=== PATIENT | female | born 1940 | race Caucasian/White ===

== ENCOUNTER 2017-09-10 16:53 | Inpatient (IN) | payer MEDICARE, OTHER ==
[~2017-09-10] VITALS: Ht 157.5 cm; Wt 61.0 kg
[~2017-09-10 16:53] MED LIST: ADVA100A; ALBU6.7H INH; HYDR12.56 PO; NIFE10
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
[2017-09-10] MEDS ORDERED: MORPHINE SULFATE 4 MG/ML INJ IV PUSH ONE (17:30)
[2017-09-10] MEDS ORDERED: MORPHINE SULFATE 2 MG/ML INJ IV PUSH ONE ×2 (18:00)
--- NOTE | 2017-09-10 18:37 | RADRPT ---
EXAM DATE/TIME: 09/10/2017 17:48 [facility] COMPARISON: No previous studies available for comparison. INDICATIONS : Fall. Left hip pain. MEDICAL HISTORY : None. SURGICAL HISTORY : None. ENCOUNTER: Initial ACUITY: 1 day PAIN SCORE: 10/10 LOCATION: Left hip FINDINGS: Examination of the left hip was performed with AP Pelvis. There is an impacted fracture of the left f emoral neck. The fractures at the base of the femoral head. The visualized acetabulum is unremarkable . CONCLUSION: Impacted femoral neck fracture on the left. Tom Parry MD on September 10, 2017 at 18:33 Board Certified Radiologist. This report was verified electronically.
--- NOTE | 2017-09-10 18:48 | RADRPT ---
EXAM DATE/TIME: 09/10/2017 18:27 [facility] COMPARISON: No previous studies available for comparison. INDICATIONS : Trauma, trip and fall today. RADIATION DOSE: 56.35 CTDIvol (mGy) MEDICAL HISTORY : Dementia. SURGICAL HISTORY : None. ENCOUNTER: Initial ACUITY: 1 day PAIN SCALE: 3/10 LOCATION: Bilateral head TECHNIQUE: Multiple contiguous axial images were obtained of the head. Using automated exposure control and adj ustment of the mA and/or kV according to patient size, radiation dose was kept as low as reasonably a chievable to obtain optimal diagnostic quality images. DICOM format image data is available electro nically for review and comparison. FINDINGS: CEREBRUM: The ventricles are normal for age. No evidence of midline shift, mass lesion, hemorrhage or acute in farction. In the posterior left thalamus there is an area of increased density measuring 6 x 10 mm ac ross I suspect its calcium. No extra-axial fluid collections are seen. POSTERIOR FOSSA: The cerebellum and brainstem are intact. The 4th ventricle is midline. The cerebellopontine angle i s unremarkable. EXTRACRANIAL: The visualized portion of the orbits is intact. SKULL: The calvaria is intact. No evidence of skull fracture. CONCLUSION: Suspected calcification in the posterior left thalamus without surrounding edema. No concerning mass is identified. Tom Parry MD on September 10, 2017 at 18:44 Board Certified Radiologist. This report was verified electronically.
[2017-09-10 18:52] VITALS: PULSE 77; RESP 18; O2SAT 100
[2017-09-10] MEDS ORDERED: LACTULOSE SYRUP 20 GM/30 ML CUP PO PRN (19:00)
[2017-09-10] MEDS ORDERED: ACETAMINOPHEN 325 MG TAB PO PRN (19:00)
[2017-09-10] MEDS ORDERED: ONDANSETRON HCL 4 MG/2 ML VIAL IVP PRN (19:00)
[2017-09-10] MEDS ORDERED: NALOXONE HCL 0.4 MG/ML AMP IV PUSH PRN (19:00)
[2017-09-10] MEDS ORDERED: BISACODYL 10 MG SUPP RECTAL PRN (19:00)
[2017-09-10] MEDS ORDERED: SENNOSIDES 8.6 MG TAB PO PRN (19:00)
[2017-09-10] MEDS ORDERED: MAGNESIUM HYDROXIDE SUSP 30 ML CUP PO PRN (19:00)
[2017-09-10] MEDS ORDERED: SODIUM CHLORIDE 0.9% FLUSH 10 ML FLUSH IV FLUSH PRN (19:00)
[2017-09-10 19:04] VITALS: BP 172/72; PULSE 72; RESP 18; O2SAT 100
[2017-09-10 20:03] LABS: AUTOMATED NEUTROPHIL # 11.1 TH/MM3 (1.8-7.7); BASOPHIL # 0.1 TH/MM3 (0-0.2); BASOPHIL % 0.8 % (0.0-2.0); EOSINOPHIL # 0.1 TH/MM3 (0-0.4); EOSINOPHIL % 0.7 % (0.0-4.0); HEMATOCRIT 41.6 % (35.0-46.0); HEMOGLOBIN 14.5 GM/DL (11.6-15.3); LYMPH % 19.3 % (9.0-44.0); LYMPHOCYTE # 2.9 TH/MM3 (1.0-4.8); MEAN CELL VOLUME 100.9 FL (80.0-100.0); MEAN CORPUSCULAR HEMOGLOBIN 35.2 PG (27.0-34.0); MEAN CORPUSCULAR HGB CONC 34.8 % (32.0-36.0); MEAN PLATELET VOLUME 7.8 FL (7.0-11.0); MONO % 6.3 % (0.0-8.0); NEUT % 72.9 % (16.0-70.0); PLATELET COUNT 378 TH/MM3 (150-450); RED BLOOD COUNT 4.13 MIL/MM3 (4.00-5.30); RED CELL DISTRIBUTION WIDTH 13.1 % (11.6-17.2); WHITE BLOOD COUNT 15.2 TH/MM3 (4.0-11.0)
--- NOTE | 2017-09-10 20:18 | RADRPT ---
EXAM DATE/TIME: 09/10/2017 19:36 [facility] COMPARISON: No previous studies available for comparison. INDICATIONS : Evaluate for pneumonia, pneumothorax, or communicable disease. Pre op hip surgery. MEDICAL HISTORY : None. SURGICAL HISTORY : None. ENCOUNTER: Initial ACUITY: 1 day PAIN SCORE: 0/10 LOCATION: Bilateral chest FINDINGS: A single view of the chest demonstrates the lungs to be symmetrically aerated without evidence of mas s, infiltrate or effusion. The cardiomediastinal contours are unremarkable. Osseous structures are intact. CONCLUSION: Normal examination. Tom Parry MD on September 10, 2017 at 20:15 Board Certified Radiologist. This report was verified electronically.
[2017-09-10 20:19] LABS: BILIRUBIN, URINE NEG (NEG); BLOOD, URINE NEG (NEG); GLUCOSE,URINE NEG (NEG); KETONE, URINE TRACE mg/dL (NEG); NITRITE,URINE NEG (NEG); URINE COLOR YELLOW (YELLW/STRAW); URINE LEUKOCYTE ESTERASE NEG (NEG)
[2017-09-10 20:25] LABS: ALBUMIN 3.5 GM/DL (3.4-5.0); AST (GOT) 23 U/L (15-37); BICARBONATE 23.1 MEQ/L (21.0-32.0); BLOOD UREA NITROGEN 15 MG/DL (7-18); CALCIUM 8.7 MG/DL (8.5-10.1); CHLORIDE 104 MEQ/L (98-107); CREATININE 0.91 MG/DL (0.50-1.00); GLOMERULAR FILTRATION RATE 60 ML/MIN (>89); GLUCOSE,RANDOM 104 MG/DL (74-106); SODIUM (NA) 138 MEQ/L (136-145)
[2017-09-10 20:29] LABS: ALKALINE PHOSPHATASE 104 U/L (45-117); ALT (GPT) 27 U/L (10-53); TOTAL BILIRUBIN ADULT 0.5 MG/DL (0.2-1.0); TOTAL PROTEIN 7.2 GM/DL (6.4-8.2)
[2017-09-10 20:33] LABS: PROTHROMBIN TIME - PATIENT 10.1 SEC (9.8-11.6)
[2017-09-10] MEDS: ACETAMINOPHEN/HYDROcodone 325 MG/5 MG TAB PO PRN (20:36)
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
[2017-09-10 21:35] VITALS: BP 149/82; PULSE 70; RESP 16; TEMP 96.6; O2SAT 100
[2017-09-10] MEDS ORDERED: SODIUM CHLORID 0.9% 500 ML IV PRN (22:00)
[2017-09-10] MEDS ORDERED: LACTATED RINGER'S 1000 ML IV PRN (22:00)
[2017-09-10] MEDS ORDERED: METOPROLOL TARTRATE 25 MG TAB PO PRN (22:00)
[2017-09-10] MEDS ORDERED: CHLORHEXIDINE GLUCONATE 2 % 1 PACK (2 CLOTHS) TOPICAL PRN (22:00)
[2017-09-10] MEDS ORDERED: POVIDONE IODINE 5% (ANTISEPSIS KIT) 4 APPLICATIONS EACH NARE PRN (22:00)
[2017-09-10] MEDS ORDERED: MEMA1PAK PO (23:47)
[2017-09-10] MEDS ORDERED: PANT40TA3 PO (23:47)
[2017-09-10] MEDS ORDERED: DONE5TAB8 PO (23:47)
[2017-09-10] MEDS ORDERED: ATOR10TA15 PO (23:47)
[2017-09-10] MEDS ORDERED: BETH10TA2 PO (23:47)
[2017-09-10] MEDS ORDERED: ERYT250T13 PO (23:47)
[2017-09-11] MEDS: MEMANTINE HCL 10 MG TAB PO SCH ×3 (01:10→20:24)
[2017-09-11] MEDS ORDERED: diphenhydrAMINE HCL 25 MG CAP PO PRN (01:15)
[2017-09-11] MEDS ORDERED: MEMANTINE HCL 10 MG PO SCH (01:15)
[2017-09-11] MEDS: BETHANECHOL CHL 10 MG TAB PO SCH ×3 (01:15→15:25)
[2017-09-11] MEDS: MORPHINE SULFATE 2 MG/ML INJ IV PUSH PRN ×2 (03:34→06:32)
[2017-09-11] MEDS: SODIUM CHLORIDE 0.9% FLUSH 10 ML FLUSH IV FLUSH SCH ×3 (03:34→20:25)
[2017-09-11 06:00] VITALS: BP 185/76; PULSE 95; RESP 16; TEMP 98.3; O2SAT 96
[2017-09-11] MEDS ORDERED: TRANEXAMIC ACID INJ 915 MG in SODIUM CHLORIDE 0.9% INJ 100 ML IV SCH (07:00)
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
[2017-09-11] MEDS ORDERED: WALKER/ADULT/FO1 MIS (07:07)
[2017-09-11] MEDS ORDERED: XARE10TA PO (07:07)
[2017-09-11] MEDS ORDERED: CALCTAB19 PO (07:07)
[2017-09-11] MEDS ORDERED: NORC5TAB PO (07:07)
[2017-09-11] MEDS ORDERED: VITA500012 PO (07:07)
--- NOTE | 2017-09-11 07:50 | PD.CONS ---
History of Present Illness Service Neurology Consult Requested By medical Reason for Consult headache, abnormal ct brain Primary Care Physician Unknown History of Present Illness 77 y/o female admitted after suspected non-syncopal fall 2/2 imbalance and found to have left femoral neck fracture. underlying hx of dementia. had ct brain scan as part of w/u that showed a left thalamic lesion. they are from [place] and spend their brothers here. 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 hx of chronic headaches for about a year, takes nsaids for it. do not occur everyday. are frontal. no fever, no photo/phonophobia. no vision loss. short lasting. does not wake her up out of her sleep. no hx of tia/stroke/sz. pt states she has a mild frontal headache this am. edin po without difficulty. Review of Systems Except as stated in HPI/admit hp: all other systems reviewed are Neg Past Family Social History Past Medical History Dementia Asthma chronic headaches . Past Surgical History Denies any prior surgeries . Reported Medications Patient's to bring in a list tomorrow: Namenda Ibuprofen . Allergies: Coded Allergies: sulfamethoxazole (Unverified Allergy, Severe, RED FACE, 09/10/17) trimethoprim (Unverified Allergy, Severe, RED FACE, 09/10/17) . Family History Denies any family history of anesthesia-related problems . Social History Tobacco: Denies ever smoking Alcohol: Rare alcohol use on special occasions Illicit Drugs: Denies . Review of Systems All other ROS: ROS reviewed as documented in chart Past Family Social History Allergies: Coded Allergies: sulfamethoxazole (Unverified Allergy, Severe, RED FACE, 09/10/17) trimethoprim (Unverified Allergy, Severe, RED FACE, 09/10/17) Active Ordered Medications Current Medications Medications (Trade) Dose Ordered Sig/Joy Route Start Time Stop Time Status Last Admin (NS Flush) 2 ml UNSCH PRN IV FLUSH 09/10/17 19:00 (NS Flush) 2 ml BID IV FLUSH 09/10/17 21:00 09/11/17 03:34 (Tylenol) 650 mg Q4H PRN PO 09/10/17 19:00 (Zofran Inj) 4 mg Q6H PRN IVP 09/10/17 19:00 (Narcan Inj) 0.4 mg UNSCH PRN IV PUSH 09/10/17 19:00 (Milk Of Magnesia Liq) 30 ml Q12H PRN PO 09/10/17 19:00 (Senokot) 17.2 mg Q12H PRN PO 09/10/17 19:00 (Dulcolax Supp) 10 mg DAILY PRN RECTAL 09/10/17 19:00 (Lactulose Liq) 30 ml DAILY PRN PO 09/10/17 19:00 ([place] 5-325 Mg) 1 tab Q6H PRN PO 09/10/17 19:00 09/10/17 20:36 Lactated Ringer's 1,000 ml @ 30 mls/hr Q24H PRN IV 09/10/17 22:00 09/13/17 21:59 Sodium Chloride 500 ml @ 30 mls/hr [id number] PRN IV 09/10/17 22:00 09/13/17 21:59 (Lopressor) 25 mg INDUSTRIAL ENGINEERING MANAGER PRN PO 09/10/17 22:00 09/13/17 21:59 (Betadine 5% Antisepsis Kit) 1 applic INDUSTRIAL ENGINEERING MANAGER PRN EACH NARE 09/10/17 22:00 09/13/17 21:59 (Chlorhexidine 2% Cloth) 3 pack INDUSTRIAL ENGINEERING MANAGER PRN TOPICAL 09/10/17 22:00 09/13/17 21:59 (Morphine Inj) 2 mg Q3H PRN IV PUSH 09/10/17 23:30 09/11/17 06:32 (Benadryl) 25 mg HS PRN PO 09/11/17 01:15 (Lipitor) 10 mg DAILY PO 09/11/17 09:00 (Urecholine) 10 mg Q8HR PO 09/11/17 01:15 (Aricept) 5 mg DAILY PO 09/11/17 09:00 (Protonix) 40 mg BID PO 09/11/17 09:00 (Erythromycin Ec) 250 mg DAILY PO 09/11/17 09:00 (Namenda) 10 mg BID PO 09/11/17 01:10 Tranexamic Acid 915 mg/Sodium Chloride 109.15 ml @ 200 mls/ hr UNSCH X1 IV 09/11/17 07:00 09/11/17 13:00 Exam I&O / VS Vital Signs Date Time Temp Pulse Resp B/P (MAP) Pulse Ox O2 Delivery O2 Flow Rate FiO2 09/11/17 06:00 98.3 95 16 185/76 (112) 96 09/11/17 05:53 21 09/10/17 21:35 96.6 70 16 149/82 (104) 100 09/10/17 20:35 09/10/17 19:04 72 18 172/72 (105) 100 Room Air 09/10/17 18:52 77 18 100 Room Air 09/10/17 17:45 60 18 100 General: No acute distress Eye: EOMI Respiratory: Non-labored respirations Cardiology: Normal rate Neurologic: Alert, CN II-XII intact Psychiatric: Cooperative, Appropriate mood & affect Exam Comments ox 1, pleasant, calm, in nad, eomi, ou 3-2mm, face sym, no hindu tenderness, neck supple, villanueva to gravity but reduced in left le 2/2 fx, msr sym Review/Management Diagnosis/Plan: (1) Head ache ICD Codes: R51 - Headache Status: Chronic Plan: chronic headache. may be tension-type left dorsal thalamic lesion- possibly calcification recs mri/mra brain if possible before left hip surgery, otherwise when feasible trial of depakote er d/w pt/spouse (2) History of dementia ICD Codes: Z86.59 - Personal history of other mental and behavioral disorders Status: Chronic Plan: x 1 year per spouse (3) Impacted fracture of left hip ICD Codes: S72.092A - Other fracture of head and neck of left femur, initial encounter for closed fracture Status: Acute Problem Qualifiers (1) Head ache: (2) Impacted fracture of left hip: Qualified Codes: S72.092A - Other fracture of head and neck of left femur, initial encounter for closed fracture Darrius Cooper MD Sep 11, 2017 07:50
[2017-09-11 08:00] VITALS: BP 153/82; PULSE 95; RESP 18; TEMP 99.1; O2SAT 96
[2017-09-11] MEDS: ATORVASTATIN 10 MG TAB PO SCH (08:34)
[2017-09-11] MEDS: ACETAMINOPHEN/HYDROcodone 325 MG/5 MG TAB PO PRN ×2 (08:35→15:26)
[2017-09-11] MEDS: DONEPEZIL HCL 5 MG TAB PO SCH (08:35)
[2017-09-11] MEDS: PANTOPRAZOLE SOD 40 MG DELAYED RELEASE TAB PO SCH ×2 (08:35→20:24)
[2017-09-11] MEDS: ERYTHROMYCIN EC 250 MG TABEC PO SCH (09:00)
[2017-09-11] MEDS: DIVALPROEX SODIUM E.R. 250 MG TAB PO SCH (09:00)
[2017-09-11 10:24] VITALS: O2SAT 96
[2017-09-11] MEDS ORDERED: ceFAZolin INJ 1,000 MG VIAL ONE (10:52)
[2017-09-11] MEDS ORDERED: VANCOMYCIN HCL 1000 MG VIAL ONE (10:52)
[2017-09-11] MEDS ORDERED: SODIUM CHLOR 0.9% 250 ML INJ 250 ML ONE (10:53)
[2017-09-11] MEDS ORDERED: GENTAMICIN SULFATE 80 MG/2 ML VIAL ONE (10:53)
--- NOTE | 2017-09-11 11:45 | PD.OP ---
cc: Rico Angeles MD Operative Report Date of Surgery: Sep 11, 2017 Preoperative Diagnosis: Displaced left femoral neck fracture Postoperative Diagnosis: Procedure: Left hip hemiarthroplasty Anesthesia: Spinal Surgeon: Rico Angeles Physical Therapy Technician(s): ERNA Ling PA-C The surgical procedure was assisted by my physician physician assistant surgery. My P.A. presence was necessary throughout this case for the manipulation and positioning of the surgical extremity. My P.A. was assisting me throughout the duration of this procedure. The skill set of a physician physician assistant surgery was medically necessary to complete this procedure. During the surgical case the surgical garment assembly supervisor was working at the back table and the physician physician assistant surgery was directly assisting me. Operation and Findings: PLAN OF ACTIVITY Weight bear as tolerated. IMPLANTS USED DePuy Corail size [10] stem with size [42] bipolar head and [+1] neck. DRAIN: 7 mm Sameer-Rojas drain DETAILS OF PROCEDURE Regi was brought into the operating room and placed on the OR table. The patient was given spinal anesthesia. The patient received IV antibiotics. The patient was then placed in lateral decubitus position. The left hip and leg were prepped with alcohol, followed by Hibiclens and draped in a usual sterile fashion. Clean air was used for this procedure. Time out procedure was performed. The procedure began with a 5 inch incision over the posterolateral hip. The subcutaneous tissue was dissected with the Bovie. The iliotibial band were split in line with fibers. The Charnley retractor was placed. The piriformis and external rotators were released from the femur and tagged with a #1 Vicryl suture. The capsule is now incised and tagged with #1 Vicryl. The femoral neck fracture was now visualized. A corkscrew was now used to remove the femoral head. The femoral head was sized and measured. Soft tissue was now protected. The hip skid was placed underneath the femoral neck. An oscillating saw was used to make a femoral neck cut. At this point attention was turned to preparation of the proximal femur. A box osteotome was used to remove the lateral cortex of the femoral neck. The T- handle reamer was used to open the femoral canal. Next, the canal was broached. A lateralizing reamer was used to help lateralize the prosthesis. At this point a trial head and neck were placed. The hip was reduced. The patient was found to have excellent stability with good range of motion. Trial components were removed. Soft tissue and bone were thoroughly irrigated. A Corail stem was now opened. The stem was now impacted into the proximal femur. Care was taken to keep appropriate anteversion. The head and neck were now impacted onto the stem. The hip was again reduced. The hip was found to have good range of motion and good stability. Leg lengths were clinically equal. The wound was thoroughly irrigated. The capsule, piriformis and iliotibial band were closed with #1 Vicryl. Subcutaneous tissue was closed with 3-0 Vicryl. The skin was closed with armando. A sterile dressing was applied with Primapore. The patient was placed into a knee immobilizer. The patient was awakened and transferred to the recovery room in stable condition. Needle and sponge counts were correct. Rico Angeles MD Sep 11, 2017 11:45
--- NOTE | 2017-09-11 11:58 | MB ---
cc: MAINE LEARY DATE OF CONSULTATION 09/11/2017 REASON FOR CONSULTATION Left femoral neck fracture. CONSULTING PHYSICIAN Dr. Maldonado. HISTORY OF PRESENT ILLNESS Ms. Darden is a 77-year-old female. She has a history of dementia. She is unable to give any significant history herself. Her is at bedside. The patient and her were walking out of [employer]. The patient turned around to look behind her when she lost her balance. She fell. She landed on her left side. She had immediate left hip pain. She was unable to stand or ambulate. She presented to the emergency room where x-rays revealed a left femoral neck fracture. She is currently awake but confused. Pain is worse with movement. She denies dizziness, syncope or loss of consciousness. PAST MEDICAL HISTORY ILLNESSES 1. Dementia. 2. Asthma. 3. Gastroparesis. SURGERIES None. MEDICATIONS 1. Namenda. 2. Ibuprofen. ALLERGIES 1. SULFA. 2. TRIMETHOPRIM. FAMILY HISTORY Noncontributory. SOCIAL HISTORY The patient lives with her . She does not smoke, drink, or use drugs. REVIEW OF SYSTEMS The review of systems is limited secondary to dementia. She denies headache, visual changes, neck pain, chest pain, shortness of breath, abdominal pain, nausea, vomiting or recent weight loss, fevers or chills, numbness or tingling of extremities. She complains of left hip pain. Pain is worse with movement. PHYSICAL EXAMINATION GENERAL: The patient is a 77-year-old female in no acute distress. She is awake but has confusion. She appears well-developed, well-nourished. VITAL SIGNS: Temperature 99.1, pulse 95, respirations 18, blood pressure 153/82. O2 sat is 96% on room air. HEAD: The patient is normocephalic. Pupils are equal. NECK: Soft, nontender. Trachea is midline. ABDOMEN: Soft, nontender, nondistended. EXTREMITIES: Examination of bilateral upper extremities reveals no obvious pain or deformity with shoulder, elbow or wrist motion. She has good capillary refill in her fingers. Sensation is intact to both hands. Skin is intact. Examination of right leg reveals no obvious pain or deformity with hip, knee or ankle motion. Skin is intact. Dorsalis pedis pulse is palpable. Sensation is intact. Examination of left leg reveals pain with any hip motion. She has minimal tenderness around her knee, tibia or ankle. Skin is intact. Dorsalis pedis pulse is palpable. Sensation is intact in the left lower extremity. X-RAYS X-rays of left hip were reviewed. X-rays reveal a displaced left femoral neck fracture. IMPRESSION 1. Displaced left femoral neck fracture. 2. Dementia. PLAN The treatment options were discussed with the patient and her . At this point I would recommend a left hip hemiarthroplasty. The risks of surgery include bleeding, infection, injuries to arteries, nerves and blood vessels, nonunion, hip dislocation, leg length discrepancies, as well as medical complications including blood clot, stroke, heart attack and . All questions were answered. I will plan on surgery today. A mid-level provider in my office, nurse practitioner or PA, may see this patient on a follow-up basis and continue to implement the objective of this plan including: Starting or adjusting medications, injections of muscle, tendon, bursa or joints, cast application, orthotic or brace application, physical therapy, further radiographic studies including x-ray, MRI, CT, ultrasounds or bone scan, vascular studies, neurologic studies, or other specialist consultations, and proceeding with surgical management as appropriate. MD CHRISTEL Snider/WILMAR /11:05 AM /11:31 AM
[2017-09-11] MEDS ORDERED: ePHEDrine/NS 25 MG/5 ML SYRINGE IV ONE (12:00)
[2017-09-11] MEDS ORDERED: PROPOFOL 200 MG/20 ML AMP IV ONE (12:00)
[2017-09-11] MEDS ORDERED: PHENYLEPHRINE HCL 10 MG/ML VIAL IV ONE (12:00)
[2017-09-11] MEDS ORDERED: GLYCOPYRROLATE 1 MG/5 ML SYRINGE IV PUSH ONE (12:00)
[2017-09-11] MEDS ORDERED: PHENYLEPH/NS 1000 MCG/10 ML SYR IV ONE (12:00)
[2017-09-11] MEDS ORDERED: *ONDANSETRON 4 MG VIAL PERIprocedural Use ONLY ONE (13:02)
--- NOTE | 2017-09-11 13:02 | HHI.PR ---
Subjective Remarks no nausea or vomiting mild headache Objective Vitals Vital Signs Date Time Temp Pulse Resp B/P (MAP) Pulse Ox O2 Delivery O2 Flow Rate FiO2 09/11/17 10:24 96 09/11/17 08:00 99.1 95 18 153/82 (105) 96 09/11/17 06:00 98.3 95 16 185/76 (112) 96 09/11/17 05:53 21 09/10/17 21:35 96.6 70 16 149/82 (104) 100 09/10/17 20:35 09/10/17 19:04 72 18 172/72 (105) 100 Room Air 09/10/17 18:52 77 18 100 Room Air 09/10/17 17:45 60 18 100 I/O 09/10/17 09/10/17 09/10/17 09/11/17 09/11/17 09/11/17 06:59 14:59 22:59 06:59 14:59 22:59 Output Total 300 ml 450 ml Balance -300 ml -450 ml Output Urine Total 300 ml 450 ml Result Diagram: 09/10/17192409/10/171924 Imaging Last Impressions Hip and Pelvis X-Ray 09/11/17 1139 Signed Impressions: Service Date/Time: Monday, September 11, 2017 13:44 - CONCLUSION: Expected post surgical changes status post left hip arthroplasty. Chinmay Mays MD Head Magnetic Resonance Angiography 09/11/17 0000 Signed Impressions: Service Date/Time: Monday, September 11, 2017 17:00 - CONCLUSION: 1. Small caliber likely hypoplastic right A1 segment. 2. Otherwise, unremarkable MRA examination of the brain. Specifically, no evidence for significant AV malformation as questioned. Lencho Zhao MD Brain MRI 09/11/17 0000 Signed Impressions: Service Date/Time: Monday, September 11, 2017 17:00 - CONCLUSION: 1. The apparent calcification in the left thalamus is not well-visualized on MRI. There is no focal mass or abnormal enhancement in this region. 2. Atrophy and chronic small vessels in the change. Chinmay Mays MD Chest X-Ray 09/10/17 1859 Signed Impressions: Service Date/Time: Sunday, September 10, 2017 19:36 - CONCLUSION: Normal examination. Tom Parry MD Head CT 09/10/17 1734 Signed Impressions: Service Date/Time: Sunday, September 10, 2017 18:27 - CONCLUSION: Suspected calcification in the posterior left thalamus without surrounding edema. No concerning mass is identified. Tom Parry MD Objective Remarks awake and alert no nuchal rigidity lungs clear regular rhtyhm abdomen sot, nontender extremities no edema Procedures 09/11- left hip hemiarthroplasty A/P Problem List: (1) Impacted fracture of left hip ICD Code: S72.092A - Other fracture of head and neck of left femur, initial encounter for closed fracture Status: Acute (2) History of dementia ICD Code: Z86.59 - Personal history of other mental and behavioral disorders Status: Chronic Assessment and Plan 77 y/o female with a history of dementia, asthma without exacerbation since childhood, frequent headaches, and gastroparesis who presents to the ER following a fall in the [employer] parking lot earlier today resulting in severe left hip pain. Imaging in the emergency room shows impacted fracture of left femoral neck. S/P left hip hemiarthroplasty for Impacted fracture of left femoral neck 09/11 - orthopedics ff - [place] 5/325 mg p.o. q6h PRN pain Underlying Dementia - continue meds chronic Frequent headaches/suspected left posterior thalamus calcification seen on head CT in ED - likely a benign finding -appreciate Dr. Cruz seeing patient - Depakote DVT prophylaxis - Lovenox CM - DC planning- SNF likely Problem Qualifiers (1) Impacted fracture of left hip: Qualified Codes: S72.092A - Other fracture of head and neck of left femur, initial encounter for closed fracture Vanessa Ingram MD Sep 11, 2017 13:02
[2017-09-11] MEDS ORDERED: DO NOT ADM ANY ANTICOAGULANT DRUGS PRN (13:11)
[2017-09-11] MEDS ORDERED: MORPHINE SULFATE 2 MG/ML INJ IV PUSH PRN (13:45)
[2017-09-11] MEDS ORDERED: Post-op Orders (for Pharmacy) XX ONE (14:00)
--- NOTE | 2017-09-11 14:51 | RADRPT ---
EXAM DATE/TIME: 09/11/2017 13:44 [facility] COMPARISON: HIP LEFT (AP&LAT 2/3VWS) W AP PELVIS, September 10, 2017, 17:48. INDICATIONS : Post left total hip replacement. MEDICAL HISTORY : Dementia. Asthma. SURGICAL HISTORY : Total left hip replacement. ENCOUNTER: Subsequent ACUITY: 2 days PAIN SCORE: Non-responsive. LOCATION: Left hip FINDINGS: Multiple views of the left hip were obtained as well as an AP view the pelvis. The patient is status post left hip arthroplasty. Femoral and tibial components are intact and in normal alignment. There i s an adjacent surgical drain in place. There is mild osteopenia. There is mild soft tissue swelling w ith overlying skin armando. CONCLUSION: Expected post surgical changes status post left hip arthroplasty. Chinmay Mays MD on September 11, 2017 at 14:47 Board Certified Radiologist. This report was verified electronically.
[2017-09-11] MEDS ORDERED: ERGOCALCIFEROL (VIT D2) 50,000 UNIT CAP PO ONE (15:00)
[2017-09-11 15:30] VITALS: BP 106/58; PULSE 64; RESP 17; TEMP 95.9; O2SAT 99
--- NOTE | 2017-09-11 15:48 | EKG ---
Date Performed: 09/10/2017 Time Performed: 19:31:37 PTAGE: 77 years EKG: SINUS BRADYCARDIA POSSIBLE INFERIOR MYOCARDIAL INFARCTION BORDERLINE ECG PREVIOUS TRACING : 10/14/2008 19.59 Compared to prior tracing no significant change DOCTOR: Cristobal Ivey Interpretating Date/Time 09/11/2017 15:46:54
--- NOTE | 2017-09-11 17:52 | RADRPT ---
EXAM DATE/TIME: 09/11/2017 17:00 [facility] COMPARISON: CT BRAIN W/O CONTRAST, September 10, 2017, 18:27. INDICATIONS : Mass. patient is one day status post trauma with suspected calcifications versus mass in the left mulu lamus. CONTRAST: 12 cc Omniscan (gadodiamide) IV MEDICAL HISTORY : None. SURGICAL HISTORY : Left hip. ENCOUNTER: Subsequent ACUITY: 1 day PAIN SCORE: 3/10 LOCATION: cranial TECHNIQUE: Multiplanar, multisequence MRI of the brain was performed both prior to and following the administrat ion of paramagnetic contrast. FINDINGS: CEREBRUM: The ventricles are normal for age. No evidence of midline shift, mass lesion, hemorrhage or acute in farction. The area of apparent calcification seen on CT in the posterior left thalamus is not well vi sualized on the MRI. On the SWI mid images there is low signal in this region consistent with a benig n process such as a calcification. No extraaxial fluid collections are seen. The pituitary gland and suprasellar cistern are normal in configuration. WHITE MATTER: On the flair weighted images there is increased signal noted on the periventricular white matter zahraa acteristic of chronic small vessel ischemic change. POSTERIOR FOSSA: The cerebellum and brainstem are intact. The 4th ventricle is midline. The cerebellopontine angle is unremarkable. The cerebellar tonsils are normal in position. DIFFUSION IMAGING: No focal areas of restricted diffusion are seen. No evidence of acute infarction. EXTRACRANIAL: The visualized portions of the orbits and paranasal sinuses are unremarkable. POST-CONTRAST: No abnormal areas of parenchymal or dural enhancement. No evidence of blood-brain barrier breakdown. CONCLUSION: 1. The apparent calcification in the left thalamus is not well-visualized on MRI. There is no focal m ass or abnormal enhancement in this region. 2. Atrophy and chronic small vessels in the change. Chinmay Mays MD on September 11, 2017 at 17:43 Board Certified Radiologist. This report was verified electronically.
[2017-09-11] MEDS: ceFAZolin 2 GM PREMIX 50 ML IV SCH (18:00)
[2017-09-11] MEDS ORDERED: GADODIAMIDE PF 287 MG/ML 5 ML VIAL (for RAD MRI) IV PUSH ONE (18:03)
--- NOTE | 2017-09-11 18:08 | RADRPT ---
EXAM DATE/TIME: 09/11/2017 17:00 [facility] COMPARISON: MRI BRAIN W & W/O CONTRAST, September 11, 2017, 17:00. INDICATIONS : AVM. MEDICAL HISTORY : None. SURGICAL HISTORY : Left hip. ENCOUNTER: Subsequent ACUITY: 1 day PAIN SCORE: 3/10 LOCATION: cranial Please note a normal MRA of the brain does not entirely exclude the possibility of a small aneurysm, nor the possibility of distal intracranial vessel disease. TECHNIQUE: 3D time of flight MRA was performed. Source images, multiplanar STS MIP, and 3D volume MIP reconstru ctions were reviewed. FINDINGS: Anterior circulation: Distal intracranial internal carotid arteries are patent with flow extending to the middle and anteri or cerebral arteries. Small caliber likely hypoplastic right A1 segment. There is no evidence for ane urysm, vessel truncation or stenosis, and no evidence for vascular malformation. Posterior circulation: Symmetric distal vertebral arteries with flow extending to basilar artery. There is no evidence for aneurysm, vessel truncation or stenosis, and no evidence for vascular malformation. CONCLUSION: 1. Small caliber likely hypoplastic right A1 segment. 2. Otherwise, unremarkable MRA examination of the brain. Specifically, no evidence for significant AV malformation as questioned. Lencho Zhao MD on September 11, 2017 at 18:04 Board Certified Radiologist. This report was verified electronically.
[2017-09-11 20:00] VITALS: BP 156/77; PULSE 78; RESP 16; TEMP 98.3; O2SAT 98
[2017-09-11] MEDS ORDERED: LACTATED RINGER'S 1000 ML IV PRN (22:45)
[2017-09-11] MEDS ORDERED: POVIDONE IODINE 5% (ANTISEPSIS KIT) 4 APPLICATIONS EACH NARE PRN (22:45)
[2017-09-11] MEDS ORDERED: SODIUM CHLORID 0.9% 500 ML IV PRN (22:45)
[2017-09-11] MEDS ORDERED: CHLORHEXIDINE GLUCONATE 2 % 1 PACK (2 CLOTHS) TOPICAL PRN (22:45)
[2017-09-11] MEDS ORDERED: INSULIN HUMAN REGULAR 1,000 UNITS/10 ML VIAL SQ PRN (22:45)
[2017-09-11] MEDS ORDERED: METOPROLOL TARTRATE 25 MG TAB PO PRN (22:45)
[2017-09-11 22:49] LABS: C-REACTIVE PROTEIN 10.3 MG/DL (0.00-0.30)
[2017-09-12] VITALS (8 sets, daily range): BP systolic 137–185; BP diastolic 78–89; PULSE 83–97; RESP 16–20; TEMP 96.6–99.4; O2SAT 93–99
[2017-09-12] MEDS: ceFAZolin 2 GM PREMIX 50 ML IV SCH ×2 (00:40→06:14)
[2017-09-12] MEDS: MORPHINE SULFATE 2 MG/ML INJ IV PUSH PRN ×2 (00:47→07:55)
[2017-09-12] MEDS: BETHANECHOL CHL 10 MG TAB PO SCH ×4 (00:47→12:34)
--- NOTE | 2017-09-12 06:45 | PD.ORT.PN ---
Subjective Subjective Remarks POD 1 s/p left hip hemiarthroplasty patient reports mild pain. no other complaints. Objective Vitals Vital Signs Date Time Temp Pulse Resp B/P (MAP) Pulse Ox O2 Delivery O2 Flow Rate FiO2 09/12/17 06:00 99.0 97 16 180/89 (119) 98 09/12/17 00:00 98.7 83 16 166/78 (107) 95 09/11/17 20:00 98.3 78 16 156/77 (103) 98 09/11/17 15:30 95.9 64 17 106/58 (74) 99 09/11/17 14:45 97.6 68 16 110/57 (74) 96 Room Air 09/11/17 14:30 67 16 108/59 (75) 96 Room Air 09/11/17 14:15 70 16 109/57 (74) 96 Room Air 09/11/17 14:00 74 16 102/55 (71) 95 Room Air 09/11/17 13:45 75 16 99/52 (68) 95 Room Air 09/11/17 13:30 72 16 97/53 (68) 95 Room Air 09/11/17 13:15 70 16 94/50 (65) 94 Room Air 09/11/17 13:00 97.7 62 18 88/56 (67) 98 Nasal Cannula 2 09/11/17 10:24 96 09/11/17 08:00 99.1 95 18 153/82 (105) 96 I/O 09/11/17 09/11/17 09/11/17 09/12/17 09/12/17 09/12/17 07:00 15:00 23:00 07:00 15:00 23:00 Intake Total 1000 ml 600 ml Output Total 300 ml 830 ml 700 ml Balance -300 ml 170 ml -100 ml Intake Oral 600 ml Other 1000 ml Output Urine Total 300 ml 700 ml 700 ml Drainage Total 30 ml Estimated Blood Loss 100 ml Result Diagram: 09/10/17192409/10/171924 Imaging Last 24 hours Impressions Chest X-Ray 09/10/179 Signed Impressions: Service Date/Time: Sunday, September 10, 2017 19:36 - CONCLUSION: Normal examination. Tom Parry MD Head CT 09/10/17 [id number] Signed Impressions: Service Date/Time: Sunday, September 10, 2017 18:27 - CONCLUSION: Suspected calcification in the posterior left thalamus without surrounding edema. No concerning mass is identified. Tom Parry MD Hip and Pelvis X-Ray 09/10/17 6099 Signed Impressions: Service Date/Time: Sunday, September 10, 2017 17:48 - CONCLUSION: Impacted femoral neck fracture on the left. Tom Parry MD Objective Remarks LLE: dressings clean and dry. intact. NVI. +CKS. +drain Assessment & Plan Assessment and Plan 1) Left femoral neck fracture s/p hemiarthroplasty - POD 1 -WBAT -posterior hip precautions -knee brace while in bed -DC drain POD 2 with dressing change -CM for SNF placement -DVT prophylaxis -f/u with Ariane or PA 2 weeks Rodney Manuel/Coal Grader MARIE Sep 12, 2017 06:45
[2017-09-12 07:16] LABS: HEMATOCRIT 38.9 % (35.0-46.0); HEMOGLOBIN 13.3 GM/DL (11.6-15.3)
[2017-09-12] MEDS: ATORVASTATIN 10 MG TAB PO SCH (07:55)
[2017-09-12] MEDS: ACETAMINOPHEN/HYDROcodone 325 MG/5 MG TAB PO PRN ×2 (07:55→21:33)
[2017-09-12] MEDS: MEMANTINE HCL 10 MG TAB PO SCH ×2 (07:55→21:28)
[2017-09-12] MEDS: PANTOPRAZOLE SOD 40 MG DELAYED RELEASE TAB PO SCH ×2 (07:55→21:28)
[2017-09-12] MEDS: DONEPEZIL HCL 5 MG TAB PO SCH (07:55)
[2017-09-12] MEDS: DIVALPROEX SODIUM E.R. 250 MG TAB PO SCH (07:55)
[2017-09-12] MEDS: ERYTHROMYCIN EC 250 MG TABEC PO SCH (07:56)
[2017-09-12] MEDS: CHOLECALCIFEROL (VIT D3) 5000 UNIT CAP PO SCH (07:56)
--- NOTE | 2017-09-12 07:58 | HHI.PR ---
Review/Management Diagnosis/Plan: (1) Head ache ICD Codes: R51 - Headache Status: Chronic Plan: chronic headache. may be tension-type left dorsal thalamic lesion- possibly calcification mri negative recs mri/mra brain- no lesion, no stroke or mass esr nml continue depakote; can titrate up in a few weeks d/w pt/spouse results of imaging (2) History of dementia ICD Codes: Z86.59 - Personal history of other mental and behavioral disorders Status: Chronic Plan: x 1 year per spouse (3) Impacted fracture of left hip ICD Codes: S72.092A - Other fracture of head and neck of left femur, initial encounter for closed fracture Status: Acute Subjective Subjective Comments No acute events reported No headache No chest pain No dyspnea Active Medications Current Medications Medications (Trade) Dose Ordered Sig/Joy Route Start Time Stop Time Status Last Admin (NS Flush) 2 ml UNSCH PRN IV FLUSH 09/10/17 19:00 (NS Flush) 2 ml BID IV FLUSH 09/10/17 21:00 09/11/17 20:25 (Tylenol) 650 mg Q4H PRN PO 09/10/17 19:00 (Zofran Inj) 4 mg Q6H PRN IVP 09/10/17 19:00 (Narcan Inj) 0.4 mg UNSCH PRN IV PUSH 09/10/17 19:00 (Milk Of Magnesia Liq) 30 ml Q12H PRN PO 09/10/17 19:00 (Senokot) 17.2 mg Q12H PRN PO 09/10/17 19:00 (Dulcolax Supp) 10 mg DAILY PRN RECTAL 09/10/17 19:00 (Lactulose Liq) 30 ml DAILY PRN PO 09/10/17 19:00 ([place] 5-325 Mg) 1 tab Q6H PRN PO 09/10/17 19:00 09/11/17 15:26 Lactated Ringer's 1,000 ml @ 30 mls/hr Q24H PRN IV 09/10/17 22:00 09/13/17 21:59 Sodium Chloride 500 ml @ 30 mls/hr [id number] PRN IV 09/10/17 22:00 09/13/17 21:59 (Lopressor) 25 mg HOOP COILER PRN PO 09/10/17 22:00 09/13/17 21:59 09/11/17 10:04 (Betadine 5% Antisepsis Kit) 1 applic HOOP COILER PRN EACH NARE 09/10/17 22:00 09/13/17 21:59 (Chlorhexidine 2% Cloth) 3 pack HOOP COILER PRN TOPICAL 09/10/17 22:00 09/13/17 21:59 (Morphine Inj) 2 mg Q3H PRN IV PUSH 09/10/17 23:30 09/12/17 00:47 (Benadryl) 25 mg HS PRN PO 09/11/17 01:15 (Lipitor) 10 mg DAILY PO 09/11/17 09:00 09/11/17 08:34 (Urecholine) 10 mg Q8HR PO 09/11/17 01:15 09/12/17 06:13 (Aricept) 5 mg DAILY PO 09/11/17 09:00 09/11/17 08:35 (Protonix) 40 mg BID PO 09/11/17 09:00 09/11/17 20:24 (Erythromycin Ec) 250 mg DAILY PO 09/11/17 09:00 09/11/17 09:00 (Namenda) 10 mg BID PO 09/11/17 01:10 09/11/17 20:24 (Depakote Er) 250 mg DAILY PO 09/11/17 09:00 09/11/17 09:00 (Lovenox Inj) 30 mg Q24H SQ 09/12/17 12:00 (Morphine Inj) 2 mg Q3H PRN IV PUSH 09/11/17 13:45 (Vitamin D3) 5,000 units DAILY PO 09/12/17 09:00 Miscellaneous Information ALL NURSING DEPARTME... UNSCH PRN .XX 09/11/17 13:11 09/12/17 13:10 Lactated Ringer's 1,000 ml @ 30 mls/hr Q24H PRN IV 09/11/17 22:45 09/14/17 22:44 Sodium Chloride 500 ml @ 30 mls/hr [id number] PRN IV 09/11/17 22:45 09/14/17 22:44 (Lopressor) 25 mg HOOP COILER PRN PO 09/11/17 22:45 09/14/17 22:44 (Betadine 5% Antisepsis Kit) 1 applic HOOP COILER PRN EACH NARE 09/11/17 22:45 09/14/17 22:44 (Chlorhexidine 2% Cloth) 3 pack HOOP COILER PRN TOPICAL 09/11/17 22:45 09/14/17 22:44 (NovoLIN R INJ) See Protocol Table ... HOOP COILER PRN SQ 09/11/17 22:45 09/14/17 22:44 Allergies Allergies Coded Allergies sulfamethoxazole (Unverified Allergy, Severe, RED FACE, 09/10/17) trimethoprim (Unverified Allergy, Severe, RED FACE, 09/10/17) Review of Systems All other ROS: ROS reviewed as documented in chart Exam I&O / VS Vital Signs Date Time Temp Pulse Resp B/P (MAP) Pulse Ox O2 Delivery O2 Flow Rate FiO2 09/12/17 07:40 99.4 94 20 185/85 (118) 93 09/12/17 06:00 99.0 97 16 180/89 (119) 98 09/12/17 00:00 98.7 83 16 166/78 (107) 95 09/11/17 20:00 98.3 78 16 156/77 (103) 98 09/11/17 15:30 95.9 64 17 106/58 (74) 99 09/11/17 14:45 97.6 68 16 110/57 (74) 96 Room Air 09/11/17 14:30 67 16 108/59 (75) 96 Room Air 09/11/17 14:15 70 16 109/57 (74) 96 Room Air 09/11/17 14:00 74 16 102/55 (71) 95 Room Air 09/11/17 13:45 75 16 99/52 (68) 95 Room Air 09/11/17 13:30 72 16 97/53 (68) 95 Room Air 09/11/17 13:15 70 16 94/50 (65) 94 Room Air 09/11/17 13:00 97.7 62 18 88/56 (67) 98 Nasal Cannula 2 09/11/17 10:24 96 09/11/17 08:00 99.1 95 18 153/82 (105) 96 General: No acute distress Eye: EOMI Respiratory: Non-labored respirations Cardiology: Normal rate Neurologic: Alert, CN II-XII intact Psychiatric: Cooperative, Appropriate mood & affect Exam Comments ox 1, pleasant, calm, in nad, eomi, ou 3-2mm, face sym, no church tenderness, neck supple, villanueva to gravity but reduced in left le 2/2 fx/cast, msr sym Objective Micro and Labs Laboratory Tests Test 09/11/17 21:50 09/12/17 06:50 Erythrocyte Sedimentation Rate 14 C-Reactive Protein 10.30 Vitamin B12 Level 220 25-Hydroxy Vitamin D Total 12.2 Thyroid Stimulating Hormone 3rd Gen 6.600 Hemoglobin 13.3 Hematocrit 38.9 Problem Qualifiers (1) Head ache: (2) Impacted fracture of left hip: Qualified Codes: S72.092A - Other fracture of head and neck of left femur, initial encounter for closed fracture Darrius Cooper MD Sep 12, 2017 07:58
[2017-09-12] MEDS: SODIUM CHLORIDE 0.9% FLUSH 10 ML FLUSH IV FLUSH SCH ×2 (09:00→21:28)
[2017-09-12] MEDS: ENOXAPARIN SODIUM 30 MG/0.3 ML SYRINGE SQ SCH (12:00)
--- NOTE | 2017-09-12 13:16 | HHI.PR ---
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 moves extremites limited by pain up with PT- but needed full assist Objective Vitals Vital Signs Date Time Temp Pulse Resp B/P (MAP) Pulse Ox O2 Delivery O2 Flow Rate FiO2 09/12/17 11:53 93 09/12/17 07:40 99.4 94 20 185/85 (118) 93 09/12/17 06:00 99.0 97 16 180/89 (119) 98 09/12/17 00:00 98.7 83 16 166/78 (107) 95 09/11/17 20:00 98.3 78 16 156/77 (103) 98 09/11/17 15:30 95.9 64 17 106/58 (74) 99 09/11/17 14:45 97.6 68 16 110/57 (74) 96 Room Air 09/11/17 14:30 67 16 108/59 (75) 96 Room Air 09/11/17 14:15 70 16 109/57 (74) 96 Room Air 09/11/17 14:00 74 16 102/55 (71) 95 Room Air 09/11/17 13:45 75 16 99/52 (68) 95 Room Air 09/11/17 13:30 72 16 97/53 (68) 95 Room Air 09/11/17 13:15 70 16 94/50 (65) 94 Room Air I/O 09/11/17 09/11/17 09/11/17 09/12/17 09/12/17 09/12/17 07:00 15:00 23:00 07:00 15:00 23:00 Intake Total 1000 ml 600 ml Output Total 300 ml 830 ml 50 ml 715 ml Balance -300 ml 170 ml -50 ml -115 ml Intake Oral 600 ml Other 1000 ml Output Urine Total 300 ml 700 ml 700 ml Drainage Total 30 ml 50 ml 15 ml Estimated Blood Loss 100 ml Result Diagram: 09/12/17 0650 09/10/17 1925 Imaging Last Impressions Hip and Pelvis X-Ray 09/11/17 1139 Signed Impressions: Service Date/Time: Monday, September 11, 2017 13:44 - CONCLUSION: Expected post surgical changes status post left hip arthroplasty. Chinmay Myas MD Head Magnetic Resonance Angiography 09/11/17 0000 Signed Impressions: Service Date/Time: Monday, September 11, 2017 17:00 - CONCLUSION: 1. Small caliber likely hypoplastic right A1 segment. 2. Otherwise, unremarkable MRA examination of the brain. Specifically, no evidence for significant AV malformation as questioned. Lencho Zhao MD Brain MRI 09/11/17 0000 Signed Impressions: Service Date/Time: Monday, September 11, 2017 17:00 - CONCLUSION: 1. The apparent calcification in the left thalamus is not well-visualized on MRI. There is no focal mass or abnormal enhancement in this region. 2. Atrophy and chronic small vessels in the change. Chinmay Mays MD Chest X-Ray 09/10/17 1859 Signed Impressions: Service Date/Time: Sunday, September 10, 2017 19:36 - CONCLUSION: Normal examination. Tom Parry MD Head CT 09/10/17 1734 Signed Impressions: Service Date/Time: Sunday, September 10, 2017 18:27 - CONCLUSION: Suspected calcification in the posterior left thalamus without surrounding edema. No concerning mass is identified. Tom Parry MD Objective Remarks awake and alert no nuchal rigidity lungs clear regular rhythm abdomen sot, nontender extremities no edema, right hip post op dressing, drain in place no calf swelling moves both LE spontaneously Procedures 09/11- left hip hemiarthroplasty A/P Problem List: (1) Impacted fracture of left hip ICD Code: S72.092A - Other fracture of head and neck of left femur, initial encounter for closed fracture Status: Acute (2) History of dementia ICD Code: Z86.59 - Personal history of other mental and behavioral disorders Status: Chronic Assessment and Plan 77 y/o female with a history of dementia, asthma without exacerbation since childhood, frequent headaches, and gastroparesis who presents to the ER following a fall in the [employer] parking lot earlier today resulting in severe left hip pain. Imaging in the emergency room shows impacted fracture of left femoral neck. S/P left hip hemiarthroplasty for Impacted fracture of left femoral neck 09/11 - orthopedics ff - [place] 5/325 mg p.o. q6h PRN pain - PT daily Underlying Dementia - continue meds chronic Frequent headaches/suspected left posterior thalamus calcification seen on head CT in ED - likely a benign finding -appreciate Dr. 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
[2017-09-13 00:20] VITALS: BP 153/93; PULSE 95; RESP 17; TEMP 99.6; O2SAT 99
[2017-09-13 04:50] VITALS: BP 139/86; PULSE 93; RESP 17; TEMP 98.4; O2SAT 99
[2017-09-13] MEDS: BETHANECHOL CHL 10 MG TAB PO SCH (06:08)
--- NOTE | 2017-09-13 06:39 | PD.ORT.PN ---
Subjective Subjective Remarks Resting comfortably. Dementia, pain controlled Objective Vitals Vital Signs Date Time Temp Pulse Resp B/P (MAP) Pulse Ox O2 Delivery O2 Flow Rate FiO2 09/13/17 04:50 98.4 93 17 139/86 (103) 99 09/13/17 00:20 99.6 95 17 153/93 (113) 99 09/12/17 20:40 97.0 94 17 159/84 (109) 99 09/12/17 17:41 99 21 09/12/17 16:00 96.6 97 18 137/86 (103) 99 09/12/17 12:00 96.9 91 18 140/81 (100) 96 09/12/17 11:53 93 09/12/17 07:40 99.4 94 20 185/85 (118) 93 I/O 09/12/17 09/12/17 09/12/17 09/13/17 09/13/17 09/13/17 07:00 15:00 23:00 07:00 15:00 23:00 Intake Total 600 ml 480 ml 240 ml Output Total 715 ml 105 ml Balance -115 ml 375 ml 240 ml Intake Oral 600 ml 480 ml 240 ml Output Urine Total 700 ml 90 ml Drainage Total 15 ml 15 ml # Voids 2 # Bowel Movements 0 0 Result Diagram: 09/12/17 0650 09/10/171924 Imaging Last 24 hours Impressions Chest X-Ray 09/10/17 1859 Signed Impressions: Service Date/Time: Sunday, September 10, 2017 19:36 - CONCLUSION: Normal examination. Tom Parry MD Head CT 09/10/17 1734 Signed Impressions: Service Date/Time: Sunday, September 10, 2017 18:27 - CONCLUSION: Suspected calcification in the posterior left thalamus without surrounding edema. No concerning mass is identified. Tom Parry MD Hip and Pelvis X-Ray 09/10/17 1715 Signed Impressions: Service Date/Time: Sunday, September 10, 2017 17:48 - CONCLUSION: Impacted femoral neck fracture on the left. Tom Parry MD Objective Remarks LLE: dressings clean and dry. intact. NVI. +CKS Assessment & Plan Assessment and Plan 1) Left femoral neck fracture s/p hemiarthroplasty - POD 2 -WBAT -posterior hip precautions -knee brace while in bed -daily dry dressing change -CM for SNF placement ortho cleared -DVT prophylaxis -f/u with [facility] or [facility] 2 weeks Chinmay Alcala Jr. Sep 13, 2017 06:39
--- NOTE | 2017-09-13 07:51 | HHI.PR ---
Review/Management Diagnosis/Plan: (1) Head ache ICD Codes: R51 - Headache Status: Chronic Plan: chronic headache. may be tension-type left dorsal thalamic lesion- possibly calcification mri negative recs will increase depakote er to 500mg qhs fioricet prn d/w pt/spouse outpatient f/u (2) History of dementia ICD Codes: Z86.59 - Personal history of other mental and behavioral disorders Status: Chronic Plan: x 1 year per spouse (3) Impacted fracture of left hip ICD Codes: S72.092A - Other fracture of head and neck of left femur, initial encounter for closed fracture Status: Acute Subjective Subjective Comments No acute events reported mild frontal headache no vision loss, no dizziness No chest pain No dyspnea Active Medications Current Medications Medications (Trade) Dose Ordered Sig/Joy Route Start Time Stop Time Status Last Admin (NS Flush) 2 ml UNSCH PRN IV FLUSH 09/10/17 19:00 (NS Flush) 2 ml BID IV FLUSH 09/10/17 21:00 09/12/17 21:28 (Tylenol) 650 mg Q4H PRN PO 09/10/17 19:00 (Zofran Inj) 4 mg Q6H PRN IVP 09/10/17 19:00 (Narcan Inj) 0.4 mg UNSCH PRN IV PUSH 09/10/17 19:00 (Milk Of Magnesia Liq) 30 ml Q12H PRN PO 09/10/17 19:00 09/12/17 21:51 (Senokot) 17.2 mg Q12H PRN PO 09/10/17 19:00 (Dulcolax Supp) 10 mg DAILY PRN RECTAL 09/10/17 19:00 (Lactulose Liq) 30 ml DAILY PRN PO 09/10/17 19:00 ([place] 5-325 Mg) 1 tab Q6H PRN PO 09/10/17 19:00 09/12/17 21:33 Lactated Ringer's 1,000 ml @ 30 mls/hr Q24H PRN IV 09/10/17 22:00 09/13/17 21:59 Sodium Chloride 500 ml @ 30 mls/hr [id number] PRN IV 09/10/17 22:00 09/13/17 21:59 (Lopressor) 25 mg APPLICATION SUPPORT DEVELOPER PRN PO 09/10/17 22:00 09/13/17 21:59 09/11/17 10:04 (Betadine 5% Antisepsis Kit) 1 applic APPLICATION SUPPORT DEVELOPER PRN EACH NARE 09/10/17 22:00 09/13/17 21:59 (Chlorhexidine 2% Cloth) 3 pack APPLICATION SUPPORT DEVELOPER PRN TOPICAL 09/10/17 22:00 09/13/17 21:59 (Morphine Inj) 2 mg Q3H PRN IV PUSH 09/10/17 23:30 09/12/17 07:55 (Benadryl) 25 mg HS PRN PO 09/11/17 01:15 (Lipitor) 10 mg DAILY PO 09/11/17 09:00 09/12/17 07:55 (Urecholine) 10 mg Q8HR PO 09/11/17 01:15 09/13/17 06:08 (Aricept) 5 mg DAILY PO 09/11/17 09:00 09/12/17 07:55 (Protonix) 40 mg BID PO 09/11/17 09:00 09/12/17 21:28 (Erythromycin Ec) 250 mg DAILY PO 09/11/17 09:00 09/12/17 07:56 (Namenda) 10 mg BID PO 09/11/17 01:10 09/12/17 21:28 (Depakote Er) 250 mg DAILY PO 09/11/17 09:00 09/12/17 07:55 (Lovenox Inj) 30 mg Q24H SQ 09/12/17 12:00 09/12/17 12:00 (Morphine Inj) 2 mg Q3H PRN IV PUSH 09/11/17 13:45 (Vitamin D3) 5,000 units DAILY PO 09/12/17 09:00 09/12/17 07:56 Lactated Ringer's 1,000 ml @ 30 mls/hr Q24H PRN IV 09/11/17 22:45 09/14/17 22:44 Sodium Chloride 500 ml @ 30 mls/hr [id number] PRN IV 09/11/17 22:45 09/14/17 22:44 (Lopressor) 25 mg APPLICATION SUPPORT DEVELOPER PRN PO 09/11/17 22:45 09/14/17 22:44 (Betadine 5% Antisepsis Kit) 1 applic APPLICATION SUPPORT DEVELOPER PRN EACH NARE 09/11/17 22:45 09/14/17 22:44 (Chlorhexidine 2% Cloth) 3 pack APPLICATION SUPPORT DEVELOPER PRN TOPICAL 09/11/17 22:45 09/14/17 22:44 (NovoLIN R INJ) See Protocol Table ... APPLICATION SUPPORT DEVELOPER PRN SQ 09/11/17 22:45 09/14/17 22:44 Allergies Allergies Coded Allergies sulfamethoxazole (Unverified Allergy, Severe, RED FACE, 09/10/17) trimethoprim (Unverified Allergy, Severe, RED FACE, 09/10/17) Review of Systems All other ROS: ROS reviewed as documented in chart Exam I&O / VS Vital Signs Date Time Temp Pulse Resp B/P (MAP) Pulse Ox O2 Delivery O2 Flow Rate FiO2 09/13/17 04:50 98.4 93 17 139/86 (103) 99 09/13/17 00:20 99.6 95 17 153/93 (113) 99 09/12/17 20:40 97.0 94 17 159/84 (109) 99 09/12/17 17:41 99 21 09/12/17 16:00 96.6 97 18 137/86 (103) 99 09/12/17 12:00 96.9 91 18 140/81 (100) 96 09/12/17 11:53 93 General: No acute distress Eye: EOMI Respiratory: Non-labored respirations Cardiology: Normal rate Neurologic: Alert, CN II-XII intact Psychiatric: Cooperative, Appropriate mood & affect Exam Comments ox 1-2, pleasant, calm, in nad, eomi, ou 3-2mm, face sym, no jew tenderness, neck supple, villanueva to gravity but reduced in left le 2/2 fx/cast moves both feet well, msr sym Problem Qualifiers (1) Head ache: (2) Impacted fracture of left hip: Qualified Codes: S72.092A - Other fracture of head and neck of left femur, initial encounter for closed fracture Darrius Cooper MD Sep 13, 2017 07:51
[2017-09-13 08:00] VITALS: BP 139/86; PULSE 98; RESP 17; TEMP 96.7; O2SAT 96
[2017-09-13] MEDS ORDERED: ACETAMIN 325 MG/BUTALBITAL 50 MG/CAFFEINE 40 MG TAB PO PRN (08:00)
[2017-09-13] MEDS: PANTOPRAZOLE SOD 40 MG DELAYED RELEASE TAB PO SCH (08:22)
[2017-09-13] MEDS: ATORVASTATIN 10 MG TAB PO SCH (08:22)
[2017-09-13] MEDS: DONEPEZIL HCL 5 MG TAB PO SCH (08:22)
[2017-09-13] MEDS: ERYTHROMYCIN EC 250 MG TABEC PO SCH (08:22)
[2017-09-13] MEDS: CHOLECALCIFEROL (VIT D3) 5000 UNIT CAP PO SCH (08:22)
[2017-09-13] MEDS: MEMANTINE HCL 10 MG TAB PO SCH (08:22)
[2017-09-13] MEDS: SODIUM CHLORIDE 0.9% FLUSH 10 ML FLUSH IV FLUSH SCH (08:32)
[2017-09-13] MEDS ORDERED: DIVALPROEX SODIUM E.R. 500 MG TAB PO SCH (09:00)
[2017-09-13 10:18] VITALS: O2SAT 96
--- NOTE | 2017-09-13 10:24 | HHI.PR ---
Subjective Remarks doing very well with PT very motivated-supportive family Objective Vitals Vital Signs Date Time Temp Pulse Resp B/P (MAP) Pulse Ox O2 Delivery O2 Flow Rate FiO2 09/13/17 10:18 96 09/13/17 08:00 96.7 98 17 139/86 (103) 96 09/13/17 04:50 98.4 93 17 139/86 (103) 99 09/13/17 00:20 99.6 95 17 153/93 (113) 99 09/12/17 20:40 97.0 94 17 159/84 (109) 99 09/12/17 17:41 99 21 09/12/17 16:00 96.6 97 18 137/86 (103) 99 09/12/17 12:00 96.9 91 18 140/81 (100) 96 09/12/17 11:53 93 I/O 09/12/17 09/12/17 09/12/17 09/13/17 09/13/17 09/13/17 07:00 15:00 23:00 07:00 15:00 23:00 Intake Total 600 ml 480 ml 240 ml 120 ml Output Total 715 ml 105 ml Balance -115 ml 375 ml 240 ml 120 ml Intake Oral 600 ml 480 ml 240 ml 120 ml Output Urine Total 700 ml 90 ml Drainage Total 15 ml 15 ml # Voids 2 2 # Bowel Movements 0 0 0 Result Diagram: 09/12/17 0650 09/10/175 Imaging Last Impressions Hip and Pelvis X-Ray 09/11/17 1139 Signed Impressions: Service Date/Time: Monday, September 11, 2017 13:44 - CONCLUSION: Expected post surgical changes status post left hip arthroplasty. Chinmay Mays MD Head Magnetic Resonance Angiography 09/11/17 0000 Signed Impressions: Service Date/Time: Monday, September 11, 2017 17:00 - CONCLUSION: 1. Small caliber likely hypoplastic right A1 segment. 2. Otherwise, unremarkable MRA examination of the brain. Specifically, no evidence for significant AV malformation as questioned. Lencho Zhao MD Brain MRI 09/11/17 0000 Signed Impressions: Service Date/Time: Monday, September 11, 2017 17:00 - CONCLUSION: 1. The apparent calcification in the left thalamus is not well-visualized on MRI. There is no focal mass or abnormal enhancement in this region. 2. Atrophy and chronic small vessels in the change. Chinmay Mays MD Chest X-Ray 09/10/17 1859 Signed Impressions: Service Date/Time: Sunday, September 10, 2017 19:36 - CONCLUSION: Normal examination. Tom Parry MD Head CT 09/10/17 1734 Signed Impressions: Service Date/Time: Sunday, September 10, 2017 18:27 - CONCLUSION: Suspected calcification in the posterior left thalamus without surrounding edema. No concerning mass is identified. Tom Parry MD Objective Remarks awake and alert no nuchal rigidity lungs clear regular rhythm abdomen sot, nontender extremities no edema, right hip post op dressing, drain in place no calf swelling moves both LE spontaneously Procedures 09/11- left hip hemiarthroplasty A/P Problem List: (1) Impacted fracture of left hip ICD Code: S72.092A - Other fracture of head and neck of left femur, initial encounter for closed fracture Status: Acute (2) History of dementia ICD Code: Z86.59 - Personal history of other mental and behavioral disorders Status: Chronic Assessment and Plan 77 y/o female with a history of dementia, asthma without exacerbation since childhood, frequent headaches, and gastroparesis who presents to the ER following a fall in the [employer] parking lot earlier today resulting in severe left hip pain. Imaging in the emergency room shows impacted fracture of left femoral neck. S/P left hip hemiarthroplasty for Impacted fracture of left femoral neck 09/11 - orthopedics ff - [place] 5/325 mg p.o. q6h PRN pain - PT daily Underlying Dementia - continue meds chronic Frequent headaches/suspected left posterior thalamus calcification seen on head CT in ED - likely a benign finding -appreciate Dr. 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
[2017-09-13] MEDS: ENOXAPARIN SODIUM 30 MG/0.3 ML SYRINGE SQ SCH (12:05)
--- NOTE | 2017-09-13 16:29 | HHI.DS ---
Discharge Summary Admission Date Sep 10, 2017 at 19:21 Discharge Date: Sep 13, 2017 Admitting Diagnosis Left impacted femoral neck fracture, dementia (1) Impacted fracture of left hip ICD Code: S72.092A - Other fracture of head and neck of left femur, initial encounter for closed fracture Diagnosis: Principal Status: Acute (2) History of dementia ICD Code: Z86.59 - Personal history of other mental and behavioral disorders Status: Chronic Procedures 09/11- left hip hemiarthroplasty Brief History - From Admission 77 y/o female with a history of dementia, asthma without exacerbation since childhood, frequent headaches, and gastroparesis who presents to the ER following a fall in the [employer] parking lot earlier today resulting in severe left hip pain. The patient is unable to provide all of her own history due to dementia and what she cannot provide is given by her at the bedside. Imaging in the emergency room shows impacted fracture of left femoral neck. The patient reports she was at [employer] earlier today. Her says that someone honked their horn in the parking lot and she turned around to look and lost her balance, stepped into a puddle, and fell onto her left side with immediate pain in left hip. She is in severe pain (left hip) at the time of my visit and accepts offer of pain medication. She also reports worsening of pain with movement. She did not lose consciousness or experience syncope but hit her head when she fell. Incidentally, she's also been having frequent headaches since last December (2016) without any work up for. She takes Ibuprofen 800 mg PRN for severe headaches with last dose this morning at [address] head was done in ED and showed 6 x 10 mm suspected calcification in the posterior left thalmus area without surrounding edema. Denies any recent illness, fevers, chest pain, palpitations, constipation, or diarrhea. 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 He says she say a GI specialist and there's nothing they could do for her. Her reports that he is a retired pathologist. CBC/BMP: 09/12/17 0650 09/10/[id number] Significant Findings Laboratory Tests Test 09/10/17 19:25 09/11/17 21:50 09/12/17 06:50 White Blood Count 15.2 TH/MM3 (4.0-11.0) Mean Corpuscular Volume 100.9 FL (80.0-100.0) Mean Corpuscular Hemoglobin 35.2 PG (27.0-34.0) Neutrophils (%) (Auto) 72.9 % (16.0-70.0) Neutrophils # (Auto) 11.1 TH/MM3 (1.8-7.7) Monocytes # (Auto) 1.0 TH/MM3 (0-0.9) Urine Ketones TRACE mg/dL (NEG) Estimat Glomerular Filtration Rate 60 ML/MIN (>89) C-Reactive Protein 10.30 MG/DL (0.00-0.30) 25-Hydroxy Vitamin D Total 12.2 ng/ML (30-100) Thyroid Stimulating Hormone 3rd Gen 6.600 uIU/ML (0.358-3.740) Imaging Last Impressions Hip and Pelvis X-Ray 09/11/17 1139 Signed Impressions: Service Date/Time: Monday, September 11, 2017 13:44 - CONCLUSION: Expected post surgical changes status post left hip arthroplasty. Chinmay Mays MD Head Magnetic Resonance Angiography 09/11/17 0000 Signed Impressions: Service Date/Time: Monday, September 11, 2017 17:00 - CONCLUSION: 1. Small caliber likely hypoplastic right A1 segment. 2. Otherwise, unremarkable MRA examination of the brain. Specifically, no evidence for significant AV malformation as questioned. Lencho Zhao MD Brain MRI 09/11/17 0000 Signed Impressions: Service Date/Time: Monday, September 11, 2017 17:00 - CONCLUSION: 1. The apparent calcification in the left thalamus is not well-visualized on MRI. There is no focal mass or abnormal enhancement in this region. 2. Atrophy and chronic small vessels in the change. Chinmay Mays MD Chest X-Ray 09/10/17 1859 Signed Impressions: Service Date/Time: Sunday, September 10, 2017 19:36 - CONCLUSION: Normal examination. Tom Parry MD Head CT 09/10/17 3626 Signed Impressions: Service Date/Time: Sunday, September 10, 2017 18:27 - CONCLUSION: Suspected calcification in the posterior left thalamus without surrounding edema. No concerning mass is identified. Tom Parry MD PE at Discharge awake and alert no nuchal rigidity lungs clear regular rhythm abdomen sot, nontender extremities no edema, right hip post op dressing, drain in place no calf swelling moves both LE spontaneously Pt update on day of discharge pain controlled motivated with getting more therapy Hospital Course 77 y/o female with a history of dementia, asthma without exacerbation since childhood, frequent headaches, and gastroparesis who presents to the ER following a fall in the [employer] parking lot earlier today resulting in severe left hip pain. Imaging in the emergency room shows impacted fracture of left femoral neck. S/P left hip hemiarthroplasty for Impacted fracture of left femoral neck 09/11 - orthopedics ff - [place] 5/325 mg p.o. q6h PRN pain - PT daily Underlying Dementia - continue meds chronic Frequent headaches/suspected left posterior thalamus calcification seen on head CT in ED - likely a benign finding -appreciate Dr. Cruz seeing patient - Depakote DVT prophylaxis - Lovenox CM - DC planning- SNF- [place] today d/w patient and who is a pathologist from [place] Pt Condition on Discharge: Good Discharge Disposition: Rehab Inpatient Discharge Time: <= 30 minutes Discharge Instructions DIET: Follow Instructions for: As Tolerated, No Restrictions Speech Therapy-Diet Recommends: Regular Activities you can perform: Weight Bearing as [place] Follow up Referrals: Orthopedics - 2 Weeks @ [facility] with Rico Thakkar MD New Medications: Calcium Carbonate-Vitamin D (Calcium 600+D 200) 600-200 Mg-Unit Tab 1 TAB PO BID for Nutritional Supplement, #90 TAB 0 Refills Ergocalciferol (Ergocalciferol) 50,000 Unit Cap 08859 UNITS PO Q7D for Nutritional Supplement, #8 CAP Hydrocodone-Acetaminophen ([place]) 5 Mg-325 Mg Tab 1 TAB PO Q4H PRN for PAIN, #60 TAB 0 Refills Rivaroxaban (Xarelto) 10 Mg Tab 10 MG PO DAILY for Blood Clot Prevention, #14 TAB 0 Refills Walker/Adult/Folding (Walker/Adult/Folding) 1 Mis Mis EA .ROUTE DIRECTED, #1 0 Refills Vanessa Ingram MD Sep 13, 2017 16:29
== END 2017-09-13 12:12 | DRG 470 ==
LOC: NEPC 16:53 → NEDA 19:21 → N06A 20:52
PROVIDERS: ADMIT Internal Medicine; ATTEND Internal Medicine
PROC: 0SRS0JZ Replacement of Left Hip Joint, Femoral Surface with Synthetic Substitute, Open Approach (ICD-10-PCS; principal; 2017-09-11 11:30)
DX: S72.002A Fracture of unspecified part of neck of left femur, initial encounter for closed fracture (principal); G93.89 Other specified disorders of brain; K31.84 Gastroparesis; G44.229 Chronic tension-type headache, not intractable; F03.90 Unspecified dementia, unspecified severity, without behavioral disturbance, psychotic disturbance, mood disturbance, and anxiety; W01.0XXA Fall on same level from slipping, tripping and stumbling without subsequent striking against object, initial encounter; Y92.481 Parking lot as the place of occurrence of the external cause; Z88.2 Allergy status to sulfonamides
CPT/HCPCS: 51702; 70450; 70544; 70553; 71045; 73502; 80053; 81001; 82306; 82607; 83921; 84443; 85014; 85018; 85025; 85610; 85652; 85730; 86140; 86850; 86900; 86901; 93005; 96374; A9579; C1776; J0690; J1580; J1650; J2270; J2370; J2405; J3370; J7050; L1830

== ENCOUNTER 2017-12-28 14:53 | Inpatient (IN) | payer MEDICARE, OTHER ==
[~2017-12-28] VITALS: Ht 152.4 cm; Wt 58.5 kg
[~2017-12-28 14:53] MED LIST changes: -ADVA100A; -ALBU6.7H INH; +ATOR10TA15 PO; +BETH10TA2 PO; +CALCTAB19 PO; +DONE5TAB8 PO; +ERYT250T13 PO; -HYDR12.56 PO; +MACR100C2 PO; +MEMA1PAK PO; +METO10TA PO; -NIFE10; +NORC5TAB PO; +PANT40TA3 PO; +POLY17S PO; +SIME125 PO; +VITA500012 PO; +WALKER/ADULT/FO1 MIS; +WHEEMIS3
[2017-12-28 14:59] VITALS: BP 106/60; PULSE 80; RESP 18; TEMP 97.8; O2SAT 100
[2017-12-28 15:15] VITALS: BP 109/64; PULSE 74; RESP 17; O2SAT 100
--- NOTE | 2017-12-28 15:44 | PD ---
HPI Chief Complaint: Pain: Acute or Chronic Time Seen by Provider: 15:16 Travel History International Travel<30 days: No Contact w/Intl Traveler<30days: No Traveled to known affect area: No History of Present Illness HPI 77-year-old female with PMH of dementia presents to the ED for evaluation of abnormal result. Patient's is at bedside and helps to provide the history. Patient saw her primary care today with complaint of intermittent frontal headaches with accompanying nausea. Currently asymptomatic. Patient denies dizziness, vision changes, chest pain, palpitations, shortness of breath , abdominal pain, nausea, vomiting, dysuria. She is alert to self, thinks that it is August 1987. She is unsure who the president is. Dr. Nava ordered CT of the brain which revealed a 7 x 10 mm region of hyperdensity in the left thalamus consistent with intra-axial hemorrhage. PFSH Past Medical History Asthma: No Autoimmune Disease: No Anxiety: No Depression: No Cancer: No Cardiovascular Problems: No COPD: No Cerebrovascular Accident: No Dementia: Yes Diabetes: No Endocrine: No Gastrointestinal Disorders: Yes (gastroparesis) GERD: No Genitourinary: No Headaches: Yes Hiatal Hernia: No Immune Disorder: No Musculoskeletal: No Neurologic: No Psychiatric: No Reproductive: No Respiratory: Yes Migraines: No Seizures: No Sleep Apnea: No Thyroid Disease: No Ulcer: No ?: Not Past Surgical History Abdominal Surgery: No Cardiac Surgery: No Ear Surgery: No Endocrine Surgery: No Eye Surgery: Yes (gabi cataracts) Genitourinary Surgery: No Gynecologic Surgery: No Oral Surgery: No Thoracic Surgery: No Other Surgery: Yes Social History Alcohol Use: No Tobacco Use: No Substance Use: No Allergies-Medications (Allergen,Severity, Reaction): Coded Allergies: sulfamethoxazole (Verified Allergy, Severe, RED FACE, 09/13/17) trimethoprim (Verified Allergy, Severe, RED FACE, 09/13/17) Reported Meds & Prescriptions Reported Meds & Active Scripts Active Memantine HCl 5 Mg (28)-10 Mg (21) Tab.ds.pk 10 Mg PO BID 30 Days Gas Relief Extra Strength (Simethicone) 125 Mg Chw 125 Mg PO Q4H PRN Metoclopramide (Metoclopramide HCl) 10 Mg Tab 5 Mg PO BID Calcium 600+D 200 (Calcium Carbonate-Vitamin D) 600-200 Mg-Unit Tab 1 Tab PO BID Atorvastatin (Atorvastatin Calcium) 10 Mg Tab 10 Mg PO DAILY Erythromycin Base 250 Mg Tab 250 Mg PO DAILY Donepezil Hydrochloride 5 Mg Tab 5 Mg PO DAILY Pantoprazole (Pantoprazole Sodium) 40 Mg Tab 40 Mg PO BID Bethanechol 10 Mg Tab 10 Mg PO Q8HR Reported Tramadol (Tramadol HCl) 50 Mg Tab 50 Mg PO QID Review of Systems Except as stated in HPI: all other systems reviewed are Neg Physical Exam Narrative GENERAL: Well-nourished, well-developed white female in no acute distress. Pleasantly confused. SKIN: Focused skin assessment warm/dry. HEAD: Normocephalic. EYES: No scleral icterus. No injection or drainage. NECK: Supple, trachea midline. No JVD or lymphadenopathy. CARDIOVASCULAR: Regular rate and rhythm without murmurs, gallops, or rubs. RESPIRATORY: Breath sounds clear and equal bilaterally. No accessory muscle use. GASTROINTESTINAL: Abdomen soft, non-tender, nondistended. Active bowel sounds. MUSCULOSKELETAL: No cyanosis, or edema. Moves extremities spontaneously. NEUROLOGICAL: Awake and alert. Cranial nerves II through XII intact. Motor and sensory grossly within normal limits. Five out of 5 muscle strength in all muscle groups. Normal speech. BACK: Nontender without obvious deformity. No CVA tenderness. Data Data Last Documented VS Vital Signs Date Time Temp Pulse Resp B/P (MAP) Pulse Ox O2 Delivery O2 Flow Rate FiO2 12/28/17 15:15 74 17 109/64 (79) 100 Room Air 12/28/17 14:59 97.8 Orders Orders Basic Metabolic Panel (Bmp) (12/28/17 15:38) Complete Blood Count With Diff (12/28/17 15:38) Prothrombin Time / Inr (Pt) (12/28/17 15:38) Act Partial Throm Time (Ptt) (12/28/17 15:38) Urinalysis - C+S If Indicated (12/28/17 15:38) Iv Access Insert/Monitor (12/28/17 15:38) Ecg Monitoring (12/28/17 15:38) Oximetry (12/28/17 15:38) Sodium Chloride 0.9% Flush (Ns Flush) (12/28/17 15:45) Admit Order (Ed Use Only) (12/28/17 16:02) Labs Laboratory Tests Test 12/28/17 15:49 White Blood Count 8.4 TH/MM3 Red Blood Count 3.76 MIL/MM3 Hemoglobin 11.9 GM/DL Hematocrit 35.6 % Mean Corpuscular Volume 94.7 FL Mean Corpuscular Hemoglobin 31.6 PG Mean Corpuscular Hemoglobin Concent 33.4 % Red Cell Distribution Width 14.0 % Platelet Count 407 TH/MM3 Mean Platelet Volume 7.3 FL Neutrophils (%) (Auto) 50.2 % Lymphocytes (%) (Auto) 35.9 % Monocytes (%) (Auto) 6.4 % Eosinophils (%) (Auto) 6.7 % Basophils (%) (Auto) 0.8 % Neutrophils # (Auto) 4.2 TH/MM3 Lymphocytes # (Auto) 3.0 TH/MM3 Monocytes # (Auto) 0.5 TH/MM3 Eosinophils # (Auto) 0.6 TH/MM3 Basophils # (Auto) 0.1 TH/MM3 CBC Comment DIFF FINAL Differential Comment Prothrombin Time 10.6 SEC Prothromb Time International Ratio 1.0 RATIO Activated Partial Thromboplast Time 26.1 SEC Blood Urea Nitrogen 11 MG/DL Creatinine 1.19 MG/DL Random Glucose 98 MG/DL Calcium Level 8.2 MG/DL Sodium Level 143 MEQ/L Potassium Level 4.4 MEQ/L Chloride Level 110 MEQ/L Carbon Dioxide Level 24.1 MEQ/L Anion Gap 9 MEQ/L Estimat Glomerular Filtration Rate 44 ML/MIN MDM Medical Decision Making Medical Screen Exam Complete: Yes Emergency Medical Condition: Yes Differential Diagnosis ICH versus HTN versus migraine versus other Narrative Course 77-year-old female with PMH of dementia presents to the ED for evaluation of abnormal result. Patient's is at bedside and helps to provide the history. Patient saw her primary care today with complaint of intermittent frontal headaches with accompanying nausea. Currently asymptomatic. She is alert to self, states that it is August 1987. She is unsure who the president is. Dr. Nava ordered CT of the brain which revealed a 7 x 10 mm region of hyperdensity in the left thalamus consistent with intra-axial hemorrhage. Vitals reviewed. No focal neuro deficits on exam. Basic lab work ordered and pending. I discussed the results of the CT brain with the patient' s . He is agreeable to admission. Dr. Perez spoke with Dr. Arndt who agrees to accept the patient to the medicine service. Please see medicine notes for disposition. Araceli Antoine Dec 28, 2017 15:44
[2017-12-28] MEDS ORDERED: SODIUM CHLORIDE 0.9% FLUSH 10 ML FLUSH IV FLUSH PRN ×2 (15:45→17:00)
[2017-12-28 16:10] LABS: AUTOMATED NEUTROPHIL # 4.2 TH/MM3 (1.8-7.7); BASOPHIL # 0.1 TH/MM3 (0-0.2); BASOPHIL % 0.8 % (0.0-2.0); EOSINOPHIL # 0.6 TH/MM3 (0-0.4); EOSINOPHIL % 6.7 % (0.0-4.0); HEMATOCRIT 35.6 % (35.0-46.0); HEMOGLOBIN 11.9 GM/DL (11.6-15.3); LYMPH % 35.9 % (9.0-44.0); MEAN CELL VOLUME 94.7 FL (80.0-100.0); MEAN CORPUSCULAR HEMOGLOBIN 31.6 PG (27.0-34.0); MEAN CORPUSCULAR HGB CONC 33.4 % (32.0-36.0); MEAN PLATELET VOLUME 7.3 FL (7.0-11.0); MONO % 6.4 % (0.0-8.0); MONOCYTE # 0.5 TH/MM3 (0-0.9); NEUT % 50.2 % (16.0-70.0); PLATELET COUNT 407 TH/MM3 (150-450); RED BLOOD COUNT 3.76 MIL/MM3 (4.00-5.30); WHITE BLOOD COUNT 8.4 TH/MM3 (4.0-11.0)
[2017-12-28 16:24] LABS: BICARBONATE 24.1 MEQ/L (21.0-32.0); BLOOD UREA NITROGEN 11 MG/DL (7-18); CALCIUM 8.2 MG/DL (8.5-10.1); CHLORIDE 110 MEQ/L (98-107); CREATININE 1.19 MG/DL (0.50-1.00); GLOMERULAR FILTRATION RATE 44 ML/MIN (>89); GLUCOSE,RANDOM 98 MG/DL (74-106); SODIUM (NA) 143 MEQ/L (136-145)
[2017-12-28 16:35] LABS: PROTHROMBIN TIME - PATIENT 10.6 SEC (9.8-11.6)
[2017-12-28] MEDS ORDERED: SIMETHICONE 125 MG CHEWABLE TAB PO PRN (16:45)
[2017-12-28] MEDS ORDERED: HEPARIN SODIUM - SQ 10,000 UNITS/ML VIAL SQ SCH (17:00)
[2017-12-28] MEDS ORDERED: GLUCAGON 1 MG/ML VIAL OTHER PRN (17:00)
[2017-12-28] MEDS ORDERED: DEXTROSE 50% IN WATER 50 ML VIAL(D50) IV PUSH PRN (17:00)
[2017-12-28] MEDS ORDERED: TRAM50TA PO (17:11)
[2017-12-28] MEDS ORDERED: PILL SPLITTER OTHER PRN (18:00)
[2017-12-28 18:38] LABS: TROPONIN I LESS THAN 0.02 NG/ML (0.02-0.05)
--- NOTE | 2017-12-28 18:46 | RADRPT ---
EXAM DATE/TIME: 12/28/2017 17:32 [facility] COMPARISON: No previous studies available for comparison. INDICATIONS : Confusion associated with headaches. MEDICAL HISTORY : Dementia. Gastroparesis. SURGICAL HISTORY : Bilateral cataracts. ENCOUNTER: Initial ACUITY: 3 days PAIN SCORE: 0/10 LOCATION: Bilateral neck PEAK SYSTOLIC VELOCITIES (cm/sec): ICA/CCA RATIO: Right: 0.96 Left: 1.16 ICA: Right: 82 Left: 88 CCA: Right: 86 Left: 76 ECA: Right: 89 Left: 121 VERTEBRAL: Right: 74 antegrade Left: 52 antegrade Elevated flow velocities and ICA/CCA ratios have been found to correlate with increased degrees of vessel stenosis, calculated as percentage of diameter relative to a normal segment of distal ICA/CCA FINDINGS: RIGHT CAROTID: Moderate calcified plaque in the bulb and proximal ICA and with 30% or less narrowing. The waveforms are within normal limits. LEFT CAROTID: Mild plaque in the bulb and proximal ICA without significant narrowing. The waveforms are within norm al limits. VERTEBRAL ARTERIES: Antegrade flow is seen in both vertebral arteries. MISCELLANEOUS: None. CONCLUSION: Bilateral carotid bifurcation atherosclerosis, right more so than left. No hemodynamically significan t narrowing. Osvaldo Medina MD on December 28, 2017 at 18:43 Board Certified Radiologist. This report was verified electronically.
--- NOTE | 2017-12-28 19:18 | RADRPT ---
EXAM DATE/TIME: 12/28/2017 18:41 [facility] COMPARISON: MRA BRAIN W/O CONTRAST, September 11, 2017, 17:00. INDICATIONS : Stroke. MEDICAL HISTORY : None. SURGICAL HISTORY : Hip replacment. ENCOUNTER: Initial ACUITY: 1 day PAIN SCORE: 1/10 LOCATION: Bilateral cranial Please note a normal MRA of the brain does not entirely exclude the possibility of a small aneurysm, nor the possibility of distal intracranial vessel disease. TECHNIQUE: 3D time of flight MRA was performed. Source images, multiplanar STS MIP, and 3D volume MIP reconstru ctions were reviewed. FINDINGS: There is excellent visualization of the major intracranial arteries out to the second-order branch ve ssels. Small A1 segment on the right again noted, most likely congenital/developmental. There is no evidence for aneurysm, acute vessel truncation or stenosis, and no evidence for vascular malformation . CONCLUSION: Intracranial arteries are within normal limits. No acute abnormality. Osvaldo Medina MD on December 28, 2017 at 19:15 Board Certified Radiologist. This report was verified electronically.
--- NOTE | 2017-12-28 19:20 | RADRPT ---
EXAM DATE/TIME: 12/28/2017 18:41 [facility] COMPARISON: MRI BRAIN W & W/O CONTRAST, September 11, 2017, 17:00. MRA BRAIN W/O CONTRAST, September 11, 2017, 17:0 0. MRA BRAIN W/O CONTRAST, December 28, 2017, 18:41. US CAROTID ARTERIES, December 28, 2017, 17:32. INDICATIONS : CVA. MEDICAL HISTORY : None. SURGICAL HISTORY : Hip replacment. ENCOUNTER: Initial ACUITY: 1 day PAIN SCORE: 2/10 LOCATION: Bilateral cranial TECHNIQUE: Multiplanar, multisequence MRI of the brain was performed without contrast. FINDINGS: CEREBRUM: The ventricles are normal for age. No evidence of midline shift, mass lesion, hemorrhage or acute in farction. No extraaxial fluid collections are seen. The pituitary gland and suprasellar cistern are normal in configuration. WHITE MATTER: Mild chronic flair ago abnormality in the periventricular white matter. POSTERIOR FOSSA: The cerebellum and brainstem are intact. The 4th ventricle is midline. The cerebellopontine angle is unremarkable. The cerebellar tonsils are normal in position. DIFFUSION IMAGING: No focal areas of restricted diffusion are seen. No evidence of acute infarction. EXTRACRANIAL: The visualized portions of the orbits and paranasal sinuses are unremarkable. CONCLUSION: 1. No acute infarct, bleed or other acute intracranial abnormality. 2. Mild chronic white matter changes. Osvaldo Medina MD on December 28, 2017 at 19:16 Board Certified Radiologist. This report was verified electronically.
--- NOTE | 2017-12-28 19:26 | PD ---
Physical Exam Narrative GENERAL: 77-year-old female in no apparent distress SKIN: Focused skin assessment warm/dry. HEAD: Normocephalic. EYES: No scleral icterus. No injection or drainage. ENT: No nasal bleeding or discharge. Mucous membranes pink and moist. NECK: Trachea midline. CARDIOVASCULAR: Regular rate and rhythm. RESPIRATORY: No accessory muscle use. No increased effort MUSCULOSKELETAL: No obvious deformities. No clubbing. No cyanosis. NEUROLOGICAL: Awake. Motor grossly within normal limits. Normal speech. Data Data Last Documented VS Vital Signs Date Time Temp Pulse Resp B/P (MAP) Pulse Ox O2 Delivery O2 Flow Rate FiO2 12/28/17 15:15 74 17 109/64 (79) 100 Room Air 12/28/17 14:59 97.8 Orders Orders Basic Metabolic Panel (Bmp) (12/28/17 15:38) Complete Blood Count With Diff (12/28/17 15:38) Prothrombin Time / Inr (Pt) (12/28/17 15:38) Act Partial Throm Time (Ptt) (12/28/17 15:38) Urinalysis - C+S If Indicated (12/28/17 15:38) Iv Access Insert/Monitor (12/28/17 15:38) Ecg Monitoring (12/28/17 15:38) Oximetry (12/28/17 15:38) Sodium Chloride 0.9% Flush (Ns Flush) (12/28/17 15:45) Admit Order (Ed Use Only) (12/28/17 16:02) Creatine Kinase (Cpk) (12/28/17 15:49) Troponin I (12/28/17 15:49) Labs Laboratory Tests Test 12/28/17 15:49 White Blood Count 8.4 TH/MM3 Red Blood Count 3.76 MIL/MM3 Hemoglobin 11.9 GM/DL Hematocrit 35.6 % Mean Corpuscular Volume 94.7 FL Mean Corpuscular Hemoglobin 31.6 PG Mean Corpuscular Hemoglobin Concent 33.4 % Red Cell Distribution Width 14.0 % Platelet Count 407 TH/MM3 Mean Platelet Volume 7.3 FL Neutrophils (%) (Auto) 50.2 % Lymphocytes (%) (Auto) 35.9 % Monocytes (%) (Auto) 6.4 % Eosinophils (%) (Auto) 6.7 % Basophils (%) (Auto) 0.8 % Neutrophils # (Auto) 4.2 TH/MM3 Lymphocytes # (Auto) 3.0 TH/MM3 Monocytes # (Auto) 0.5 TH/MM3 Eosinophils # (Auto) 0.6 TH/MM3 Basophils # (Auto) 0.1 TH/MM3 CBC Comment DIFF FINAL Differential Comment Prothrombin Time 10.6 SEC Prothromb Time International Ratio 1.0 RATIO Activated Partial Thromboplast Time 26.1 SEC Blood Urea Nitrogen 11 MG/DL Creatinine 1.19 MG/DL Random Glucose 98 MG/DL Calcium Level 8.2 MG/DL Sodium Level 143 MEQ/L Potassium Level 4.4 MEQ/L Chloride Level 110 MEQ/L Carbon Dioxide Level 24.1 MEQ/L Anion Gap 9 MEQ/L Estimat Glomerular Filtration Rate 44 ML/MIN Total Creatine Kinase 92 U/L Troponin I LESS THAN 0.02 NG/ML MDM Supervised Visit with ADEEL: Yes Interpretation(s) CBC & BMP Diagram 12/28/17 15:49 Calcium Level 8.[address] shows thalamic bleed Narrative Course I, Dr. lu , have reviewed the advance practice practitioner's documentation and am in agreement, met with the patient face to face, made the diagnosis, and the medical decision making was done by me. *My assessment and Findings: 77-year-old female presents with Abnormal outpatient CT with symptoms of headache. Appears to be more a hypertensive bleed but patient's blood pressure is normal here. Question small hemorrhagic stroke. Will admit to the hospital for further care and consultation Physician Communication Physician Communication dr townsend agrees to admit Diagnosis Primary Impression: Thalamic hemorrhage Admitting Information Admitting Physician Requests: Admit Yamilet Lu MD Dec 28, 2017 19:26
[2017-12-28 20:00] VITALS: BP 117/54; PULSE 57; RESP 18; TEMP 97.3; O2SAT 99
[2017-12-28 20:23] LABS: BILIRUBIN, URINE NEG (NEG); BLOOD, URINE NEG (NEG); GLUCOSE,URINE NEG (NEG); KETONE, URINE NEG (NEG); NITRITE,URINE NEG (NEG); PH, URINE 7.5 (5.0-8.5); URINE COLOR LIGHT-YELLOW (YELLW/STRAW); URINE LEUKOCYTE ESTERASE NEG (NEG)
[2017-12-28 20:45] VITALS: PULSE 71
[2017-12-28] MEDS: INSULIN ASPART SUPPLEMENTAL SCALE SQ SCH (21:00)
[2017-12-28] MEDS: METOCLOPRAMIDE HCL 10 MG TAB PO SCH (22:05)
[2017-12-28] MEDS: PANTOPRAZOLE SOD 40 MG DELAYED RELEASE TAB PO SCH (22:05)
[2017-12-28] MEDS: MEMANTINE HCL 10 MG TAB PO SCH (22:05)
[2017-12-28] MEDS: CALCIUM/VITAMIN D 250 MG/125 U TAB PO SCH (22:06)
[2017-12-28] MEDS: BETHANECHOL CHL 10 MG TAB PO SCH (22:06)
[2017-12-28] MEDS: SODIUM CHLORIDE 0.9% FLUSH 10 ML FLUSH IV FLUSH SCH (22:06)
--- NOTE | 2017-12-28 23:09 | HHI.HP ---
[facility] Akhil Nava MD Admission Diagnosis thalamic bleed Diagnoses: Chief Complaint: Headaches, nausea Travel History International Travel<30 Days: No Contact w/Intl Traveler <30 Da: No Traveled to Known Affected Are: No History of Present Illness 77-year-old female with a history of dementia chronic back pain, gastroparesis and, chronic frontal headaches presented to the ED after being told she had an abnormal result on an outpatient CT scan. Patient's is at bedside enables to provide history of advance for patient. Patient follows with Dr. Nava and received a call from Dr. Nava's office today saying to come to the ED emergently because her outpatient CT scan revealed a 7 x 10 mm region of hyperdensity in the left thalamus consistent with intra-axonal hemorrhage. Patient's states since September she has been having frontal headaches and has seen Dr. Frost in the past. She complains of associated nausea but denies any vomiting, chest pain, shortness of breath, blurred vision or dizziness. Patient's is very upset that patient has not been able to eat prior and was not told about the MRI results. I explained the MRI results to the patient and stated that we will await further explanation by neurology as to what her plan of care will consume of. Neurology will follow patient in a.m. I explained the patients that she can eat now that she shows no signs of neurological deficits that may prevent her from swallowing or protecting her airway. Review of Systems Except as stated in HPI: all other systems reviewed are Neg Past Family Social History Past Medical History Chronic back pain Chronic headaches Dementia Gastroparesis Past Surgical History Left hip surgery Bilateral cataracts Reported Medications Reported Meds & Active Scripts Active Memantine HCl 5 Mg (28)-10 Mg (21) Tab.ds.pk 10 Mg PO BID 30 Days Gas Relief Extra Strength (Simethicone) 125 Mg Chw 125 Mg PO Q4H PRN Metoclopramide (Metoclopramide HCl) 10 Mg Tab 5 Mg PO BID Calcium 600+D 200 (Calcium Carbonate-Vitamin D) 600-200 Mg-Unit Tab 1 Tab PO BID Atorvastatin (Atorvastatin Calcium) 10 Mg Tab 10 Mg PO DAILY Erythromycin Base 250 Mg Tab 250 Mg PO DAILY Donepezil Hydrochloride 5 Mg Tab 5 Mg PO DAILY Pantoprazole (Pantoprazole Sodium) 40 Mg Tab 40 Mg PO BID Bethanechol 10 Mg Tab 10 Mg PO Q8HR Reported Tramadol (Tramadol HCl) 50 Mg Tab 50 Mg PO QID Allergies: Coded Allergies: sulfamethoxazole (Verified Allergy, Severe, RED FACE, 09/13/17) trimethoprim (Verified Allergy, Severe, RED FACE, 09/13/17) Active Ordered Medications Current Medications Medications (Trade) Dose Ordered Sig/Joy Route Start Time Stop Time Status Last Admin (Lipitor) 10 mg DAILY PO 12/29/17 09:00 (Urecholine) 10 mg Q8HR PO 12/28/17 22:00 12/28/17 22:06 (Aricept) 5 mg DAILY PO 12/29/17 09:00 (Drisdol) 50,000 units Q7D PO 01/01/18 09:00 (Reglan) 5 mg BID PO 12/28/17 21:00 12/28/17 22:05 (Protonix) 40 mg BID PO 12/28/17 21:00 12/28/17 22:05 (Phazyme Chew) 125 mg Q4H PRN PO 12/28/17 16:45 (Oscal-D 250-125) 500 mg BID PO 12/28/17 21:00 12/28/17 22:06 (Erythromycin Ec) 250 mg DAILY PO 12/29/17 09:00 (Namenda) 10 mg BID PO 12/28/17 21:00 12/28/17 22:05 (NS Flush) 2 ml BID IV FLUSH 12/28/17 21:00 12/28/17 22:06 (NS Flush) 2 ml UNSCH PRN IV FLUSH 12/28/17 17:00 (NovoLOG SUPPLEMENTAL SCALE) 1 ACHS SQ 12/28/17 17:00 (D50w (Vial) Inj) 50 ml UNSCH PRN IV PUSH 12/28/17 17:00 (Glucagon Inj) 1 mg UNSCH PRN OTHER 12/28/17 17:00 (Pill Splitter) 1 ea UNSCH PRN OTHER 12/28/17 18:00 (Ultram) 50 mg QID PO 12/29/17 09:00 (Ultram) 50 mg NOW PO 12/29/17 00:15 12/29/17 02:00 12/29/17 00:15 Family History Patient denies any family history Social History Patient denies any tobacco, alcohol or illicit drug use Physical Exam Vital Signs Vital Signs Date Time Temp Pulse Resp B/P (MAP) Pulse Ox O2 Delivery O2 Flow Rate FiO2 12/28/17 20:00 97.3 57 18 117/54 (75) 99 12/28/17 16:56 99 Room Air 12/28/17 15:15 74 17 109/64 (79) 100 Room Air 12/28/17 14:59 97.8 80 18 106/60 (75) 100 Physical Exam GENERAL: This is a well-nourished, well-developed patient, in no apparent distress. SKIN: No rashes, ecchymoses or lesions. Cool and dry. HEAD: Atraumatic. Normocephalic. EYES: Pupils equal round and reactive. ENT: Nose without bleeding, purulent drainage or septal hematoma. airway patent. NECK: Trachea midline. No JVD or lymphadenopathy. CARDIOVASCULAR: Regular rate and rhythm without murmurs, gallops, or rubs. RESPIRATORY: Clear to auscultation. Breath sounds equal bilaterally. No wheezes , rales, or rhonchi. GASTROINTESTINAL: Abdomen soft, non-tender, nondistended. No guarding. MUSCULOSKELETAL: Extremities without clubbing, cyanosis, or edema. No joint tenderness, effusion, or edema noted. No calf tenderness. NEUROLOGICAL: Awake and confused oriented 1. Cranial nerves II through XII intact. Motor and sensory grossly within normal limits. Five out of 5 muscle strength in all muscle groups. Normal speech. Laboratory Laboratory Tests Test 12/28/17 15:49 12/28/17 19:30 White Blood Count 8.4 Red Blood Count 3.76 Hemoglobin 11.9 Hematocrit 35.6 Mean Corpuscular Volume 94.7 Mean Corpuscular Hemoglobin 31.6 Mean Corpuscular Hemoglobin Concent 33.4 Red Cell Distribution Width 14.0 Platelet Count 407 Mean Platelet Volume 7.3 Neutrophils (%) (Auto) 50.2 Lymphocytes (%) (Auto) 35.9 Monocytes (%) (Auto) 6.4 Eosinophils (%) (Auto) 6.7 Basophils (%) (Auto) 0.8 Neutrophils # (Auto) 4.2 Lymphocytes # (Auto) 3.0 Monocytes # (Auto) 0.5 Eosinophils # (Auto) 0.6 Basophils # (Auto) 0.1 CBC Comment DIFF FINAL Differential Comment Prothrombin Time 10.6 Prothromb Time International Ratio 1.0 Activated Partial Thromboplast Time 26.1 Blood Urea Nitrogen 11 Creatinine 1.19 Random Glucose 98 Calcium Level 8.2 Sodium Level 143 Potassium Level 4.4 Chloride Level 110 Carbon Dioxide Level 24.1 Anion Gap 9 Estimat Glomerular Filtration Rate 44 Total Creatine Kinase 92 Troponin I LESS THAN 0.02 Urine Color LIGHT-YELLOW Urine Turbidity CLEAR Urine pH 7.5 Urine Specific [place] 1.004 Urine Protein NEG Urine Glucose (UA) NEG Urine Ketones NEG Urine Occult Blood NEG Urine Nitrite NEG Urine Bilirubin NEG Urine Urobilinogen LESS THAN 2.0 Urine Leukocyte Esterase NEG Urine WBC 2 Microscopic Urinalysis Comment CULT NOT INDICATED Result Diagram: 12/28/17 1549 12/28/17 1549 Imaging Last Impressions Head Magnetic Resonance Angiography 12/28/17 0000 Signed Impressions: Service Date/Time: Thursday, December 28, 2017 18:41 - CONCLUSION: Intracranial arteries are within normal limits. No acute abnormality. Osvaldo Medina MD Carotid Artery Ultrasound 12/28/17 0000 Signed Impressions: Service Date/Time: Thursday, December 28, 2017 17:32 - CONCLUSION: Bilateral carotid bifurcation atherosclerosis, right more so than left. No hemodynamically significant narrowing. Osvaldo Medina MD Brain MRI 12/28/17 0000 Signed Impressions: Service Date/Time: Thursday, December 28, 2017 18:41 - CONCLUSION: 1. No acute infarct, bleed or other acute intracranial abnormality. 2. Mild chronic white matter changes. Osvaldo Medina MD Caprini VTE Risk Assessment Caprini VTE Risk Assessment: No/Low Risk (score <= 1) Caprini Risk Assessment Model Point Value = 1 Point Value = 2 Point Value = 3 Point Value = 5 Age 41-60 Minor surgery BMI > 25 kg/m2 Swollen legs Varicose veins or History of unexplained or recurrent spontaneous Oral contraceptives or hormone replacement Sepsis (< 1 month) Serious lung disease, including pneumonia (< 1 month) Abnormal pulmonary function Acute myocardial infarction Congestive heart failure (< 1 month) History of inflammatory bowel disease Medical patient at bed rest Age 61-74 Arthroscopic surgery Major open surgery (> 45 min) Laparoscopic surgery (> 45 min) Malignancy Confined to bed (> 72 hours) Immobilizing plaster cast Central venous access Age >= 75 History of VTE Family history of VTE Factor V Leiden Prothrombin [id number] Lupus anticoagulant Anticardiolipin antibodies Elevated serum homocysteine Heparin-induced thrombocytopenia Other congenital or acquired thrombophilia Stroke (< 1 month) Elective arthroplasty Hip, pelvis, or leg fracture Acute spinal cord injury (< 1 month) Prophylaxis Regimen Total Risk Factor Score Risk Level Prophylaxis Regimen 0-1 Low Early ambulation 2 Moderate Order ONE of the following: *Sequential Compression Device (SCD) *Heparin 5000 units SQ BID 3-4 Higher Order ONE of the following medications: *Heparin 5000 units SQ TID *Enoxaparin/Lovenox 40 mg SQ daily (WT < 150 kg, CrCl > 30 mL/min) *Enoxaparin/Lovenox 30 mg SQ daily (WT < 150 kg, CrCl > 10-29 mL/min) *Enoxaparin/Lovenox 30 mg SQ BID (WT < 150 kg, CrCl > 30 mL/min) AND/OR *Sequential Compression Device (SCD) 5 or more Highest Order ONE of the following medications: *Heparin 5000 units SQ TID (Preferred with Epidurals) *Enoxaparin/Lovenox 40 mg SQ daily (WT < 150 kg, CrCl > 30 mL/min) *Enoxaparin/Lovenox 30 mg SQ daily (WT < 150 kg, CrCl > 10-29 mL/min) *Enoxaparin/Lovenox 30 mg SQ BID (WT < 150 kg, CrCl > 30 mL/min) AND *Sequential Compression Device (SCD) Assessment and Plan Problem List: (1) Thalamic hemorrhage ICD Code: I61.0 - Nontraumatic intracerebral hemorrhage in hemisphere, subcortical Status: Acute (2) Head ache ICD Code: R51 - Headache Status: Chronic Assessment and Plan 77-year-old female with a history of dementia chronic back pain, gastroparesis and, chronic frontal headaches presented to the ED after being told she had an abnormal result on an outpatient CT scan. Questionable thalamus bleed/ischemic stroke, acute, patient with no neurological deficits except headaches Outpatient CT scan revealed a 710 mm region of hyper density in the left thalamus consistent with hemorrhage, records reviewed -MRI/MRA of brain was ordered. MRI shows no acute infarct, bleed or other acute intracranial abnormality. MRA reviewed and shows no intracranial arteries abnormality -Consult neurosurgery for further recommendations -Neuro checks -Lipid profile and A1c ordered -PT OT ST ordered -Carotid ultrasound and 2D echo ordered Dementia, chronic -Resume home medications Chronic back pain -Resume home tramadol per patient request Due to prophylaxis: SCDs Discussed Condition With Patient, patient's and RN Physician Certification 2 Midnight Certification Type: Admission for Inpatient Services Order for Inpatient Services The services are ordered in accordance with Medicare regulations or non- Medicare payer requirements, as applicable. In the case of services not specified as inpatient-only, they are appropriately provided as inpatient services in accordance with the 2-midnight benchmark. Estimated LOS (days): 2 days is the estimated time the patient will need to remain in the hospital, assuming treatment plan goals are met and no additional complications. Post-Hospital Plan: Home Dina Grossman Dec 28, 2017 23:09
[2017-12-28 23:38] LABS: TROPONIN I LESS THAN 0.02 NG/ML (0.02-0.05)
[2017-12-29] VITALS: PULSE 69
[2017-12-29 00:05] VITALS: BP 129/72; PULSE 86; RESP 18; TEMP 97.6; O2SAT 100
[2017-12-29] MEDS ORDERED: traMADol HCL 50 MG TAB PO SCH ×2 (00:15→09:00)
[2017-12-29 03:58] LABS: AUTOMATED NEUTROPHIL # 5.7 TH/MM3 (1.8-7.7); BASOPHIL # 0.1 TH/MM3 (0-0.2); EOSINOPHIL # 0.5 TH/MM3 (0-0.4); HEMATOCRIT 34.7 % (35.0-46.0); HEMOGLOBIN 11.8 GM/DL (11.6-15.3); LYMPH % 32.9 % (9.0-44.0); LYMPHOCYTE # 3.5 TH/MM3 (1.0-4.8); MEAN CELL VOLUME 94.3 FL (80.0-100.0); MEAN PLATELET VOLUME 7.7 FL (7.0-11.0); MONO % 6.3 % (0.0-8.0); MONOCYTE # 0.7 TH/MM3 (0-0.9); NEUT % 54.8 % (16.0-70.0); PLATELET COUNT 383 TH/MM3 (150-450); RED BLOOD COUNT 3.68 MIL/MM3 (4.00-5.30); RED CELL DISTRIBUTION WIDTH 14.6 % (11.6-17.2); WHITE BLOOD COUNT 10.5 TH/MM3 (4.0-11.0)
[2017-12-29 04:00] VITALS: PULSE 100
[2017-12-29 04:41] LABS: ALBUMIN 2.8 GM/DL (3.4-5.0); BICARBONATE 24.9 MEQ/L (21.0-32.0); BLOOD UREA NITROGEN 11 MG/DL (7-18); CALCIUM 8.6 MG/DL (8.5-10.1); CHLORIDE 111 MEQ/L (98-107); GLUCOSE,RANDOM 72 MG/DL (74-106); SODIUM (NA) 144 MEQ/L (136-145)
[2017-12-29 04:49] LABS: ALKALINE PHOSPHATASE 67 U/L (45-117); ALT (GPT) 14 U/L (10-53); AST (GOT) 18 U/L (15-37); CHOLESTEROL 151 MG/DL (120-200); CHOLESTEROL/ HDL RATIO 2.17 RATIO; CREATININE 0.97 MG/DL (0.50-1.00); FREE T4 1.07 NG/DL (0.76-1.46); GLOMERULAR FILTRATION RATE 56 ML/MIN (>89); HDL CHOLESTEROL 69.4 MG/DL (40.0-60.0); LDL CHOLESTEROL 70 MG/DL (0-99); TOTAL BILIRUBIN ADULT 0.4 MG/DL (0.2-1.0); TOTAL PROTEIN 5.7 GM/DL (6.4-8.2); TRIGLYCERIDES 57 MG/DL (42-150); TROPONIN I LESS THAN 0.02 NG/ML (0.02-0.05)
[2017-12-29 05:51] VITALS: BP 95/55; PULSE 60; RESP 18; TEMP 97.6; O2SAT 100
[2017-12-29] MEDS: BETHANECHOL CHL 10 MG TAB PO SCH (06:45)
--- NOTE | 2017-12-29 07:58 | MB ---
cc: Joni Wiseman MD, PhD DATE: 12/29/2017 REASON FOR CONSULTATION: Possible thalamic hemorrhage on CT scan and headaches. HISTORY OF PRESENT ILLNESS: Ms. Darden is a 77-year-old woman who fell about 2 months ago at [employer] and since then has had back pain and headaches. She describes the headaches in the frontal area, more on the left than on the right. They are there several times a day, a pressure feeling with no visual changes. As an outpatient, she had a CT scan of the brain done at [facility] and there was a question of a thalamic hemorrhage on the CT scan and she was therefore referred to the ER emergently. It was felt that there was a 7 x 10 mm region of hyperdensity in the left thalamus. She has since had an MRI of the brain, however, which is normal with no sign of any thalamic hemorrhage. There is chronic ischemic change. No other abnormalities identified. She had a carotid ultrasound done as well showing atherosclerosis bilaterally but no significant stenosis. PAST MEDICAL HISTORY: No previous history of migraine headaches. She has a history of recent fall with hip fracture requiring surgery on the left hip, chronic back pain, dementia, and gastroparesis. MEDICATIONS AT HOME: 1. Namenda. 2. Reglan. 3. Atorvastatin. 4. Erythromycin. 5. Donepezil. 6. Pantoprazole. 7. Bethanechol 8. Tramadol. ALLERGIES: 1. SULFAMETHOXAZOLE 2. TRIMETHOPRIM. NEUROLOGICAL EXAMINATION: VITAL SIGNS: Blood pressure is 95/55, pulse is 60, respiratory rate is 18, temperature 97 degrees. HIGHER CORTICAL FUNCTION: She is alert and oriented. Speech is fluent. CRANIAL NERVES: Intact. She has no prominent temporal artery. No temporal artery tenderness. The extraocular movements are intact. There is no occipital tenderness. MOTOR EXAM: Normal with normal strength and tone. REFLEXES: Symmetric. IMAGING STUDIES: MRI of the brain is normal for age. Carotid ultrasound normal. LABORATORY DATA: The white count is 10,500; hemoglobin 11.8; hematocrit 34.7%; platelet count 383,000. Sodium is 143, potassium 4.4, chloride 110, CO2 is 24.1, BUN is 11, creatinine 1.19, GFR is 44, glucose 98. TSH 5.050. AST 18, ALT 14. CPK is 109. Cholesterol 151, LDL cholesterol 70, HDL 69.4. Urinalysis: The pH is 7.5, specific gravity 1.004. IMPRESSION AND RECOMMENDATIONS: There is no evidence thalamic hemorrhage on the MRI. Regarding the headaches, these maybe a tension headache; however, I would like to get a sedimentation rate to rule out temporal arteritis. The patient is stable neurologically for discharge when stable from the medical service. Joni Wiseman MD, PhD SYLVIA/LISA , 07:42 AM , 07:57 AM
[2017-12-29] MEDS: INSULIN ASPART SUPPLEMENTAL SCALE SQ SCH (08:00)
[2017-12-29 08:06] VITALS: BP 118/72; PULSE 74; RESP 17; TEMP 97.5; O2SAT 100
[2017-12-29] MEDS ORDERED: ERYTHROMYCIN EC 250 MG TABEC PO SCH (09:00)
[2017-12-29] MEDS ORDERED: ASPIRIN 325 MG TAB PO SCH (09:00)
[2017-12-29] MEDS ORDERED: ATORVASTATIN 10 MG TAB PO SCH (09:00)
[2017-12-29] MEDS ORDERED: DONEPEZIL HCL 5 MG TAB PO SCH (09:00)
[2017-12-29] MEDS: SODIUM CHLORIDE 0.9% FLUSH 10 ML FLUSH IV FLUSH SCH (09:45)
[2017-12-29] MEDS: METOCLOPRAMIDE HCL 10 MG TAB PO SCH (09:45)
[2017-12-29] MEDS: PANTOPRAZOLE SOD 40 MG DELAYED RELEASE TAB PO SCH (09:46)
[2017-12-29] MEDS: CALCIUM/VITAMIN D 250 MG/125 U TAB PO SCH (09:46)
[2017-12-29] MEDS: MEMANTINE HCL 10 MG TAB PO SCH (09:46)
--- NOTE | 2017-12-29 10:03 | HHI.DCPOC ---
Discharge Care Plan Diagnosis: (1) Head ache Your Health Problems Are: Difficulty with ADL Exercise Tolerance Goals to Promote Your Health * To prevent worsening of your condition and complications * To maintain your health at the optimal level Directions to Meet Your Goals Take your medications as prescribed Follow your dietary instruction Follow activity as directed Keep your appointments as scheduled Take your immunizations and boosters as scheduled If your symptoms worsen call your PCP, if no PCP go to Urgent Care Center or Emergency Room Smoking is Dangerous to Your Health. Avoid second hand smoke Call the 24-hour hour crisis hotline for domestic abuse at Adonay Cosme MD Dec 29, 2017 10:03
--- NOTE | 2017-12-29 10:35 | HHI.PR ---
Subjective Remarks F/u QURESHI. Doing ok no QURESHI seen w dw RN Objective Vitals Vital Signs Date Time Temp Pulse Resp B/P (MAP) Pulse Ox O2 Delivery O2 Flow Rate FiO2 12/29/17 05:51 97.6 60 18 95/55 (68) 100 12/29/17 04:00 100 12/29/17 00:05 97.6 86 18 129/72 (91) 100 12/29/17 00:00 69 12/28/17 20:45 71 12/28/17 20:00 97.3 57 18 117/54 (75) 99 12/28/17 16:56 99 Room Air 12/28/17 15:15 74 17 109/64 (79) 100 Room Air 12/28/17 14:59 97.8 80 18 106/60 (75) 100 Result Diagram: 12/29/175 12/29/175 Imaging Last Impressions Head Magnetic Resonance Angiography 12/28/17 0000 Signed Impressions: Service Date/Time: Thursday, December 28, 2017 18:41 - CONCLUSION: Intracranial arteries are within normal limits. No acute abnormality. Osvaldo Medina MD Carotid Artery Ultrasound 12/28/17 0000 Signed Impressions: Service Date/Time: Thursday, December 28, 2017 17:32 - CONCLUSION: Bilateral carotid bifurcation atherosclerosis, right more so than left. No hemodynamically significant narrowing. Osvaldo Medina MD Brain MRI 12/28/17 0000 Signed Impressions: Service Date/Time: Thursday, December 28, 2017 18:41 - CONCLUSION: 1. No acute infarct, bleed or other acute intracranial abnormality. 2. Mild chronic white matter changes. Osvaldo Medina MD Objective Remarks GENERAL: This is a well-nourished, well-developed patient, in no apparent distress. SKIN: No rashes, ecchymoses or lesions. Cool and dry. CARDIOVASCULAR: Regular rate and rhythm without murmurs, gallops, or rubs. RESPIRATORY: Clear to auscultation. Breath sounds equal bilaterally. No wheezes , rales, or rhonchi. GASTROINTESTINAL: Abdomen soft, non-tender, nondistended. No guarding. MUSCULOSKELETAL: Extremities without clubbing, cyanosis, or edema. No joint tenderness, effusion, or edema noted. No calf tenderness. NEUROLOGICAL: Awake and confused oriented 1. Cranial nerves II through XII intact. Motor and sensory grossly within normal limits. Five out of 5 muscle strength in all muscle groups. Normal speech. Procedures none A/P Problem List: (1) Thalamic hemorrhage ICD Code: I61.0 - Nontraumatic intracerebral hemorrhage in hemisphere, subcortical Status: Acute (2) Head ache ICD Code: R51 - Headache Status: Chronic Assessment and Plan 77-year-old female with a history of dementia chronic back pain, gastroparesis and, chronic frontal headaches presented to the ED after being told she had an abnormal result on an outpatient CT scan. Questionable thalamus bleed/ischemic stroke, acute, patient with no neurological deficits except headaches ESR [address] scan revealed a 710 mm region of hyper density in the left thalamus consistent with hemorrhage, records reviewed -MRI shows no acute infarct, bleed or other acute intracranial findings -s/p neuro eval Tension QURESHI -Neuro checks -Lipid profile and A1c noted -PT OT ST ordered Dementia, chronic -Resume home medications Chronic back pain -Resume home tramadol per patient request Due to prophylaxis: SCDs Discharge Planning Discharge patient to home Condition on discharge: Improved Regular Diet as tolerated Ad Rosa activity no driving Rx written: none Follow-up with primary care physician Adonay Cosme MD Dec 29, 2017 10:35
[2017-12-29 10:44] LABS: HEMOGLOBIN A1C 5.6 % (4.3-6.0)
[2018-01-01] MEDS ORDERED: ERGOCALCIFEROL (VIT D2) 50,000 UNIT CAP PO SCH (09:00)
== END 2017-12-29 11:17 | disposition home or self-care (01) | DRG 103 ==
LOC: NEPE 14:53 → NEDA 16:04 → N04A 19:39
PROVIDERS: ADMIT Family Medicine; ATTEND Family Medicine
DX: R51 Headache (principal); F03.90 Unspecified dementia, unspecified severity, without behavioral disturbance, psychotic disturbance, mood disturbance, and anxiety; G89.29 Other chronic pain; M54.9 Dorsalgia, unspecified
CPT/HCPCS: 70544; 70551; 80048; 80053; 80061; 81001; 82550; 82948; 83036; 83735; 84100; 84439; 84443; 84484; 85025; 85610; 85652; 85730; 93880; 99285